=== PATIENT | female | born 1955 | race Caucasian/White ===

== ENCOUNTER → 2021-12-18 | Outpatient (CLI) | payer MEDICARE ==
[~2021-12-18] MED LIST: ACHD5005 PO; ALBU2.5V4 INH; ALPR0.25 PO; AMLO5TAB2 PO; ASCO100083 PO; ASP325TEC PO; ATOR40TA70 PO; BPR150TCR PO; CALCIUM/MAG/ZINC PO; CHOL50003 PO; CYCL10TA9 PO; EPHE1TAB PO; ESTR0.5T3 PO; FISH12002 PO; FLUT1DIS26 IH; FURO40TA PO; GLUC1TAB9 PO; HYDR-34 PO; LORA10TA76 PO; LVF500T PO; MELO-195 PO; MULT-974 PO; POTA-51 PO; SUPER B PLUS PO
--- NOTE | 2021-12-18 12:43 | Diagnostic Imaging Report ---
Indication: Left ankle pain. Time of Exam: 11:29 AM Comparison is made with prior radiograph from 12/11/2021. A transversely oriented fracture through the medial malleolus is again noted. Obliquely oriented fracture distal fibula is noted. Fracture lines remain visible. Alignment is anatomic. Ankle mortise well maintained. Talar dome is smooth. There is moderate soft tissue swelling about the medial and lateral ankle. IMPRESSION: Bimalleolar fracture showing anatomic alignment. Fracture lines remain visible. Dictated by: Dictated on workstation # [id number]
== END ==
LOC: ORTHO 11:15
PROVIDERS: ATTEND Orthopaedic Surgery
DX: S82.842A Displaced bimalleolar fracture of left lower leg, initial encounter for closed fracture (principal); X58.XXXA Exposure to other specified factors, initial encounter
CPT/HCPCS: 73610; G0463; 99203

== ENCOUNTER → 2021-12-25 | Outpatient (CLI) | payer MEDICARE | LOC: CARD 14:30 | PROVIDERS: ATTEND Internal Medicine | DX: I51.7 Cardiomegaly (principal) | CPT/HCPCS: 93306 ==

== ENCOUNTER → 2022-02-12 | Outpatient (CLI) | payer MEDICARE ==
--- NOTE | 2022-02-12 15:26 | Diagnostic Imaging Report ---
INDICATION: Ankle fracture, followup. TIME OF EXAM: 1:58 PM. COMPARISON: Correlation is made with the prior radiograph from 12/18/2021. FINDINGS: Three views of the ankle were obtained. The previously noted medial malleolar fracture is not as well-seen on today's study, consistent with healing. There is some residual lucency through the distal fibula, consistent with residual fracture line. The alignment is anatomic. There has been overall improvement in the soft tissue swelling. The ankle mortise is maintained. The talar dome is smooth. IMPRESSION: Healing ankle fractures, as described. Dictated by: Dictated on workstation # [id number]
== END ==
LOC: ORTHO 13:49
PROVIDERS: ATTEND Orthopaedic Surgery
DX: S82.62XA Displaced fracture of lateral malleolus of left fibula, initial encounter for closed fracture (principal); X58.XXXA Exposure to other specified factors, initial encounter
CPT/HCPCS: 73610

== ENCOUNTER → 2022-02-12 | Outpatient (CLI) | payer MEDICARE | LOC: ORTHO 14:02 | PROVIDERS: ATTEND Orthopaedic Surgery | DX: S82.62XA Displaced fracture of lateral malleolus of left fibula, initial encounter for closed fracture (principal); X58.XXXA Exposure to other specified factors, initial encounter | CPT/HCPCS: 99213 ==

== ENCOUNTER → 2022-03-29 | Outpatient (CLI) | payer MEDICARE ==
--- NOTE | 2022-03-29 13:11 | Diagnostic Imaging Report ---
INDICATION: Follow-up fracture. EXAMINATION: Left ankle 03/29/2022 COMPARISON: 02/12/2022. FINDINGS: 3 views of the ankle. The previously noted distal fibular fracture is stable in alignment. There is a known medial malleolar fracture which is not as well appreciated on today's examination. There is minimal residual soft tissue swelling about the ankle. No new fractures identified. Ankle mortise intact. IMPRESSION: 1. Stable appearing distal fibular fracture with the known medial malleolar fracture not well seen today. Dictated by: Dictated on workstation # [id number]
== END ==
LOC: ORTHO 11:24
PROVIDERS: ATTEND Orthopaedic Surgery
DX: Z47.89 Encounter for other orthopedic aftercare (principal); S82.492D Other fracture of shaft of left fibula, subsequent encounter for closed fracture with routine healing; S82.52XD Displaced fracture of medial malleolus of left tibia, subsequent encounter for closed fracture with routine healing; X58.XXXD Exposure to other specified factors, subsequent encounter
CPT/HCPCS: 73610; G0463; 99213

== ENCOUNTER 2023-02-17 20:15 | Inpatient (IN) | payer MEDICARE, MEDICAID ==
[~2023-02-17] VITALS: Ht 160 cm; Wt 64.7 kg
[2023-02-17] MEDS ORDERED: NS IV 1000 ML 1,000 ML IV STA ×3 (20:27→20:59)
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
[2023-02-17 20:45] LABS: BASOPHILS # (AUTO) 0.1 10^3/uL (0.0-0.1); BASOPHILS % (AUTO) 1 % (0-10); EOSINOPHILS # (AUTO) 0.6 10^3/uL (0.0-0.3); EOSINOPHILS % (AUTO) 6 % (0-10); HEMATOCRIT 37 % (35-52); HEMOGLOBIN 12.1 g/dL (11.5-16.0); LYMPHOCYTES # (AUTO) 2.9 10^3/uL (1.0-4.0); LYMPHOCYTES % (AUTO) 29 % (12-44); MEAN CORPUSCULAR HEMOGLOBIN 31 pg (25-34); MEAN CORPUSCULAR HGB CONC 33 g/dL (32-36); MEAN CORPUSCULAR VOLUME 96 fL (80-99); MEAN PLATELET VOLUME 10.2 fL (9.0-12.2); MONOCYTES # (AUTO) 1.2 10^3/uL (0.0-1.0); MONOCYTES % (AUTO) 11 % (0-12); NEUTROPHILS # (AUTO) 5.5 10^3/uL (1.8-7.8); NEUTROPHILS % (AUTO) 53 % (42-75); PLATELET COUNT 356 10^3/uL (130-400); WHITE BLOOD COUNT 10.3 10^3/uL (4.3-11.0)
[2023-02-17 20:50] LABS: ALBUMIN 4.1 GM/DL (3.2-4.5); CHLORIDE 104 MMOL/L (98-107); POTASSIUM 4.7 MMOL/L (3.6-5.0); SODIUM 138 MMOL/L (135-145)
[2023-02-17 20:51] LABS: CALCIUM 11.2 MG/DL (8.5-10.1)
[2023-02-17 20:53] LABS: GLUCOSE 79 MG/DL (70-105); TOTAL PROTEIN 7.4 GM/DL (6.4-8.2)
[2023-02-17 20:54] LABS: CARBON DIOXIDE 20 MMOL/L (21-32)
[2023-02-17 20:55] LABS: BILIRUBIN,TOTAL 0.5 MG/DL (0.1-1.0)
[2023-02-17 20:56] LABS: ALKALINE PHOSPHATASE 58 U/L (40-136)
[2023-02-17] MEDS ORDERED: NS IV 1000 ML 1,000 ML ONE (20:56)
[2023-02-17 20:57] LABS: CREATININE SERUM 3.77 MG/DL (0.60-1.30); GFR ESTIMATED 13
[2023-02-17 20:58] LABS: BUN/CREATININE RATIO 12
[2023-02-17 20:59] LABS: ALANINE AMINOTRANSFERASE 9 U/L (0-55)
[2023-02-17 21:00] LABS: LIPASE 39 U/L (8-78)
[2023-02-17] MEDS ORDERED: NOREPINEPHRINE 8 MG/250 ML 250 ML IV STA (21:12)
[2023-02-17] MEDS ORDERED: NOREPINEPHRINE 8 MG/250 ML 250 ML IV ONE (21:14)
[2023-02-17 21:34] LABS: INR 1.1 (0.8-1.4); PROTHROMBIN TIME PATIENT 14.2 SEC (12.2-14.7)
[2023-02-17 21:35] LABS: BILIRUBIN,URINE NEGATIVE (NEGATIVE); CLARITY,URINE CLEAR; COLOR,URINE YELLOW; GLUCOSE, URINE (UA) NEGATIVE (NEGATIVE); KETONES,URINE NEGATIVE (NEGATIVE); LEUKOCYTE ESTERASE ,URINE NEGATIVE (NEGATIVE); NITRITE,URINE NEGATIVE (NEGATIVE); PH,URINE 5.5 (5-9); PROTEIN,URINE NEGATIVE (NEGATIVE)
[2023-02-17 21:45] LABS: RBC,URINE RARE /HPF
[2023-02-17 21:46] LABS: AMORPHOUS SEDIMENT,UR RARE AMOR URATES /LPF; BACTERIA,URINE FEW /HPF
[2023-02-17 21:48] LABS: AMPHETAMINE SCREEN, URINE NEGATIVE (NEGATIVE); BARBITURATE SCREEN URINE NEGATIVE (NEGATIVE); BENZODIAZEPINES SCREEN URINE NEGATIVE (NEGATIVE); CANNABINOID SCREEN, URINE NEGATIVE (NEGATIVE); COCAINE SCREEN URINE NEGATIVE (NEGATIVE); METHADONE STAT NEGATIVE (NEGATIVE); OPIATE SCREEN URINE POSITIVE (NEGATIVE); OXYCODONE STAT NEGATIVE (NEGATIVE); PROPOXYPHENE STAT NEGATIVE (NEGATIVE); TRICYCLIC ANTIDEPRESSANTS SCRE NEGATIVE (NEGATIVE)
--- NOTE | 2023-02-17 22:00 | Diagnostic Imaging Report ---
PROCEDURE: CT head, face, and cervical spine without contrast. TECHNIQUE: Multiple contiguous axial images were obtained through the head, neck, and facial bones without the use of intravenous contrast. Sagittal and coronal reformations through the cervical spine and facial bones were also performed. Auto Exposure Controls were utilized during the CT exam to meet ALARA standards for radiation dose reduction. INDICATION: Pain after a fall. FINDINGS: There is prominence of the ventricles and sulci. There is no hydrocephalus. There is no midline shift. There is no mass, hemorrhage or extra-axial fluid collection. The calvarium is intact. The sinuses and mastoid air cells are clear. The nasal bones are intact. The zygomatic arches are intact. The pterygoid plates are intact. The mandibular alignment is normal. There are no displaced facial fractures. There are postsurgical changes in anterior cervical fusion. This is from C3 through C7. There is straightening of the normal cervical lordosis. There is no fracture or traumatic subluxation. The odontoids intact and the lateral masses are well-aligned. The prevertebral soft tissues are within normal limits. IMPRESSION: Age-appropriate atrophy with mild chronic microvascular ischemic disease however no acute intracranial abnormality. No displaced facial fractures. Extensive postsurgical changes in the cervical spine including an anterior cervical disc fusion from C3 through C7. There is however no acute fracture or traumatic subluxation. Dictated by: Dictated on workstation # [id number]
--- NOTE | 2023-02-17 22:06 | Diagnostic Imaging Report ---
INDICATION: Line placement. FINDINGS: There is a right inguinal line placement. The tip appears to be in satisfactory position. It is uncertain if this is venous or arterial. The osseous structures are otherwise unremarkable. IMPRESSION: Interval placement of a right inguinal line placement. Again, this is indeterminate if this is arterial or venous. Recommend clinical correlation Dictated by: Dictated on workstation # [id number]
--- NOTE | 2023-02-17 22:07 | Diagnostic Imaging Report ---
INDICATION: Syncope. COMPARISON is made with prior exam of 09/01/2014. FINDINGS: There is cardiomegaly. There is mild venous congestion. The lungs are otherwise clear. There is no pleural effusion or pneumothorax. Pacemaker overlies the left hemithorax. There are no abandoned leads. IMPRESSION: Cardiomegaly with mild central pulmonary venous congestion. Dictated by: Dictated on workstation # [id number]
[2023-02-17] MEDS ORDERED: CATHETER FLUSH 10 ML SYR IVP PRN (23:30)
[2023-02-18] MEDS ORDERED: NS IV 500 ML 500 ML IV PRN
[2023-02-18] MEDS: NOREPINEPHRINE 8 MG/250 ML 250 ML IV SCH ×2 (00:16→21:57)
[2023-02-18 04:19] LABS: BASOPHILS # (AUTO) 0.1 10^3/uL (0.0-0.1); BASOPHILS % (AUTO) 1 % (0-10); EOSINOPHILS # (AUTO) 0.5 10^3/uL (0.0-0.3); EOSINOPHILS % (AUTO) 4 % (0-10); HEMATOCRIT 37 % (35-52); HEMOGLOBIN 11.9 g/dL (11.5-16.0); LYMPHOCYTES # (AUTO) 2.9 10^3/uL (1.0-4.0); LYMPHOCYTES % (AUTO) 23 % (12-44); MEAN CORPUSCULAR HEMOGLOBIN 31 pg (25-34); MEAN CORPUSCULAR HGB CONC 32 g/dL (32-36); MEAN CORPUSCULAR VOLUME 97 fL (80-99); MEAN PLATELET VOLUME 10.2 fL (9.0-12.2); MONOCYTES # (AUTO) 1.1 10^3/uL (0.0-1.0); MONOCYTES % (AUTO) 9 % (0-12); NEUTROPHILS # (AUTO) 7.7 10^3/uL (1.8-7.8); NEUTROPHILS % (AUTO) 62 % (42-75); PLATELET COUNT 359 10^3/uL (130-400); WHITE BLOOD COUNT 12.3 10^3/uL (4.3-11.0)
[2023-02-18 04:32] LABS: ALBUMIN 3.3 GM/DL (3.2-4.5); POTASSIUM 4.2 MMOL/L (3.6-5.0)
[2023-02-18 04:33] LABS: CALCIUM 9.2 MG/DL (8.5-10.1)
[2023-02-18 04:34] LABS: TOTAL PROTEIN 6.2 GM/DL (6.4-8.2)
[2023-02-18 04:36] LABS: BILIRUBIN,TOTAL 0.4 MG/DL (0.1-1.0)
[2023-02-18 04:38] LABS: CREATININE SERUM 3.01 MG/DL (0.60-1.30); PHOSPHORUS 4.5 MG/DL (2.3-4.7)
[2023-02-18] MEDS: POTASSIUM CL 10MEQ/50ML IVPB 50 ML IV SCH (05:00)
[2023-02-18] MEDS: KCL 20 MEQ TAB (K-DUR) PO SCH (05:00)
[2023-02-18] MEDS: CATHETER FLUSH 10 ML SYR IVP SCH ×3 (05:00→21:55)
[2023-02-18] MEDS: MAGNESIUM 1 GM/100 ML IVPB 100 ML IV SCH (05:00)
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
[2023-02-18] MEDS ORDERED: LEVO25TA5 PO (11:31)
[2023-02-18] MEDS ORDERED: POTA-330 PO (11:31)
[2023-02-18] MEDS ORDERED: AMLO-250 PO (11:31)
[2023-02-18] MEDS ORDERED: ESTR0.5T PO (11:31)
[2023-02-18] MEDS ORDERED: PREG50CA65 PO (11:31)
[2023-02-18] MEDS ORDERED: CHOL-34 PO (11:31)
[2023-02-18] MEDS ORDERED: ASCO100024 PO (11:31)
[2023-02-18] MEDS ORDERED: ALLO100T PO (11:31)
[2023-02-18] MEDS ORDERED: CYCL10TA25 PO (11:31)
[2023-02-18] MEDS ORDERED: BUPR-105 PO (11:31)
[2023-02-18] MEDS ORDERED: ASPI325T32 PO (11:31)
[2023-02-18] MEDS ORDERED: METO50TA7 PO (11:31)
[2023-02-18] MEDS ORDERED: FURO40TA4 PO (11:31)
[2023-02-18] MEDS ORDERED: LISI20TA26 PO (11:31)
[2023-02-18] MEDS ORDERED: MULT-1136 PO (11:31)
[2023-02-18] MEDS ORDERED: ATOR40TA70 PO (11:31)
[2023-02-18] MEDS ORDERED: HYDR-3817 PO ×2 (11:31)
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
--- NOTE | 2023-02-18 16:02 | Diagnostic Imaging Report ---
PROCEDURE: MR imaging of the brain without contrast. TECHNIQUE: Multiplanar, multisequence MR imaging of the brain was performed without contrast. INDICATION: Right-sided weakness. COMPARISON: MRI of the brain on 01/26/2014 FINDINGS: No acute infarct. No acute or chronic hemorrhage. The ventricles are normal in size and configuration without hydrocephalus. The scalp and calvarium are normal. The pituitary and sella are normal. No Chiari malformation. The visualized upper cervical spine is normal. The visualized orbits and globes are normal. The visualized paranasal sinuses are clear. The mastoid air cells are clear. Normal flow voids within the vertebral, basilar, and internal carotid arteries indicating patency. IMPRESSION: No acute infarct, hemorrhage, mass, or hydrocephalus. Dictated by: Dictated on workstation # [id number]
--- NOTE | 2023-02-18 16:19 | Diagnostic Imaging Report ---
PROCEDURE: MR imaging cervical spine without contrast. TECHNIQUE: Multiplanar, multisequence MR imaging of the cervical spine was performed without contrast. INDICATION: Neck pain. Right-sided weakness. COMPARISON: MRI of the cervical spine on 01/26/2014. CT of the cervical spine on 02/17/2023 FINDINGS: Patient motion artifact degrades image quality. The cervical spine is normally aligned. No acute fracture. Moderate multilevel degenerative disc desiccation and disc height loss. Bone marrow edema seen within the dense. Atlantodental arthritic changes. Postsurgical changes from prior ACDF from C3 to C7. The spinal cord is normal in signal intensity. On the limited views of the cranial cavity and brain, the cerebellum and giovana have normal morphology and signal characteristics. No Chiari malformation. No soft tissue abnormality. Normal signal voids are present in the vertebral arteries. C2-3: No significant spinal canal stenosis or neural foraminal narrowing. C3-4: ACDF. Uncovertebral and facet arthropathy. Mild spinal canal narrowing. Mild bilateral neural foraminal narrowing.. C4-5: ACDF. Uncovertebral and facet arthropathy. Mild spinal canal narrowing. Mild bilateral neural foraminal narrowing.. C5-6: Disc osteophyte complex. Uncovertebral and facet arthropathy. Mild to moderate spinal canal stenosis. Severe right and moderate left neural foraminal narrowing. C6-7: Disc osteophyte complex. Uncovertebral and facet arthropathy. Ligamentum flavum thickening. Mass effect on the spinal cord. Severe spinal canal stenosis. Moderate to severe bilateral neural foraminal narrowing.. C7-T1: No significant spinal canal stenosis or neural foraminal narrowing. IMPRESSION: Bone marrow edema within the dens may be seen with degenerative change or fracture. There is significant motion artifact on MRI and comparison CT therefore a nondisplaced dens fracture is difficult to exclude. Recommend clinical correlation and follow-up imaging when patient able to hold still. High-grade spinal canal stenosis at C5-C6 and C6-C7 with mass effect on the spinal cord. Postsurgical changes from prior ACDF from C3 to C7. Dictated by: Dictated on workstation # [id number]
[2023-02-18] MEDS: PREGABALIN 50 MG (LYRICA) CAP PO SCH (20:59)
[2023-02-18] MEDS: CYCLOBENZAPRINE 10 MG (FLEXERIL) TAB PO SCH (21:00)
[2023-02-18] MEDS: HYDROcodone/APAP 7.5 MG/325 MG (LORTAB, LORCET PLUS) TABLET PO SCH (21:00)
[2023-02-18] MEDS ORDERED: RX-CYCLOBENZAPRINE 10 MG (FLEXERIL) TAB PPK#3 PO SCH (21:00)
[2023-02-18] MEDS ORDERED: THIAMINE 100 MG (VITAMIN B-1) TAB PO ONE (21:15)
[2023-02-19] MEDS: HYDROcodone/APAP 7.5 MG/325 MG (LORTAB, LORCET PLUS) TABLET PO PRN ×2 (05:01→16:14)
[2023-02-19 05:24] LABS: BASOPHILS # (AUTO) 0.1 10^3/uL (0.0-0.1); BASOPHILS % (AUTO) 1 % (0-10); EOSINOPHILS # (AUTO) 0.5 10^3/uL (0.0-0.3); EOSINOPHILS % (AUTO) 5 % (0-10); HEMATOCRIT 35 % (35-52); HEMOGLOBIN 11.4 g/dL (11.5-16.0); LYMPHOCYTES # (AUTO) 3.3 10^3/uL (1.0-4.0); LYMPHOCYTES % (AUTO) 30 % (12-44); MEAN CORPUSCULAR HEMOGLOBIN 32 pg (25-34); MEAN CORPUSCULAR HGB CONC 33 g/dL (32-36); MEAN CORPUSCULAR VOLUME 98 fL (80-99); MEAN PLATELET VOLUME 10.2 fL (9.0-12.2); MONOCYTES # (AUTO) 0.9 10^3/uL (0.0-1.0); MONOCYTES % (AUTO) 9 % (0-12); NEUTROPHILS # (AUTO) 6.2 10^3/uL (1.8-7.8); NEUTROPHILS % (AUTO) 56 % (42-75); PLATELET COUNT 320 10^3/uL (130-400)
[2023-02-19 05:43] LABS: ALBUMIN 3.3 GM/DL (3.2-4.5); BILIRUBIN,TOTAL 0.3 MG/DL (0.1-1.0); CALCIUM 9.6 MG/DL (8.5-10.1); CREATININE SERUM 1.97 MG/DL (0.60-1.30); MAGNESIUM 1.6 MG/DL (1.6-2.4); PHOSPHORUS 2.9 MG/DL (2.3-4.7); POTASSIUM 3.8 MMOL/L (3.6-5.0); TOTAL PROTEIN 6.3 GM/DL (6.4-8.2)
[2023-02-19] MEDS: MAGNESIUM 1 GM/100 ML IVPB 100 ML IV SCH ×5 (05:52→09:29)
[2023-02-19] MEDS: CATHETER FLUSH 10 ML SYR IVP SCH ×3 (05:52→21:12)
[2023-02-19] MEDS: POTASSIUM CL 10MEQ/50ML IVPB 50 ML IV SCH (05:52)
[2023-02-19] MEDS: KCL 20 MEQ TAB (K-DUR) PO SCH (05:53)
[2023-02-19] MEDS ORDERED: KCL 20 MEQ TAB (K-DUR) PO ONE (06:00)
[2023-02-19] MEDS: LEVOTHYROXINE 25 MCG (LEVOTHROID) TAB PO SCH (06:36)
[2023-02-19] MEDS: THIAMINE 100 MG (VITAMIN B-1) TAB PO SCH (06:36)
[2023-02-19] MEDS: PREGABALIN 50 MG (LYRICA) CAP PO SCH ×2 (08:16→21:11)
[2023-02-19] MEDS: HYDROcodone/APAP 7.5 MG/325 MG (LORTAB, LORCET PLUS) TABLET PO SCH ×2 (08:16→21:12)
[2023-02-19] MEDS: buPROPion SR 150 MG (WELLBUTRIN SR) TAB PO SCH ×2 (08:16→17:43)
[2023-02-19] MEDS: CYCLOBENZAPRINE 10 MG (FLEXERIL) TAB PO SCH ×2 (08:16→21:11)
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
--- NOTE | 2023-02-19 11:28 | Tele-ICU Progress Note ---
Subjective Date Seen by a Provider: Feb 19, 2023 Time Seen by a Provider: 11:28 Subjective/Events-last exam (Tele-ICU Physician , Progress Note ) Service provided via interactive audio and video telecommunications E-CARE system to a patient admitted to ICU bed in [facility]. Patient is seen today due to persistent need of ICU care Available chart/ vitals / labs / Images reviewed Video assessment done using teleICU camera, rest of exam as per RN Discussed with RN Events overnight : Afebrile hemodynamically stable Respiratory - I/O = Drips: Pressors- LEVO Hospital course: (02/17) 67yF admit with hypotension, JOSEFA s/p fall, CTH neg. line placed levo started A/P S/pfall and brief LOC - improving -CT head and facial bones and MRI did not show any acute process or Fx - ? related to combimation of different class medications - ? no clear sigh of infection - follow clinical progress Shock - etiology not clear - related to combination of different class medications - ? , no clear sigh of infection - follow clinical progress melissa w/up JOSEFA/CKD -improving , follow closely Encephalopathy - improving / meds related -CTH and MRI on admission WNL chronic pain syndrome. cervical disk ds - MRI done - on myltiple pain meds at home s/p fall - ECHO 12/2021 EF 60 % dst dsf , RVSP 35 mmHg Lines : peripg , r femoral line 02/17 , (Central Line Necessity Reviewed) Rosales: OG: Nutrition: Analgesia: Anxiety/ delirium VTE Prophylaxis: hep sq Stress Ulcer Prophylaxis: na Plans in collaboration with bedside consultants and IM MDs. Discussed with RN to reach out if any questions or concerns Case and care daily discussed on multidisciplinary rounds ( RN, PharmD, Route Delivery Service Driver , Respiratory Therapy, group worker ) A total of 31 minutes of critical care time was devoted to this patient today, required to treat and/or prevent further deterioration of critical care condition ( as above ) . I am remotely monitoring this patient from another state. I am unable to do the bedside exam, and history/physical and pertinent information is taken from other notes in the computer and bedside staff. Sepsis Event Evaluation Height, Weight, BMI Height: 5'9.00" Weight: 116lbs. 0.0oz. 52.709645qh; 23.24 BMI Method: Exam Exam Patient acknowledged, consented, and participated in this virtual visit which was conducted using real time audio/video Vital Signs Date Time Temp Pulse Resp B/P (MAP) Pulse Ox O2 Delivery O2 Flow Rate FiO2 02/19/23 10:00 76 32 91/64 (73) 95 Room Air 02/19/23 09:00 78 14 116/73 (87) 99 Room Air 02/19/23 08:00 85 22 101/70 (80) 96 Room Air 02/19/23 08:00 99 Room Air 02/19/23 07:41 89 02/19/23 07:29 36.2 Room Air 02/19/23 07:00 87 69/51 (57) 95 Room Air 02/19/23 06:37 96 66/53 02/19/23 06:14 62 129/71 (90) 98 Room Air 02/19/23 06:06 62 99/62 02/19/23 05:15 81 15 109/92 (98) 96 Room Air 02/19/23 04:59 87 17 106/82 (90) 98 Room Air 02/19/23 04:00 96 Room Air 02/19/23 03:57 36.5 02/19/23 03:55 161 13 103/67 (79) 95 Room Air 02/19/23 03:50 174 18 107/69 (82) 96 Room Air 02/19/23 03:45 125 19 107/70 (82) 96 Room Air 02/19/23 03:05 81 15 101/71 (81) 96 Room Air 02/19/23 02:15 80 11 99/65 (76) 96 Room Air 02/19/23 01:22 80 99/77 02/19/23 01:00 85 14 103/68 (80) 98 Room Air 02/19/23 01:00 101/85 02/19/23 01:00 85 02/19/23 00:45 70 74/52 02/19/23 00:06 81 15 78/54 (62) 95 Room Air 02/19/23 00:00 98 Room Air 02/18/23 23:57 36.6 02/18/23 23:00 130 84/56 (65) 95 Room Air 02/18/23 22:00 82 16 94/69 (77) 96 Room Air 02/18/23 21:57 90/76 02/18/23 21:00 82 91/70 (77) 97 Room Air 02/18/23 20:30 86 82/51 (61) 95 Room Air 02/18/23 19:51 97 Room Air 02/18/23 19:41 36.3 02/18/23 19:30 87 38 95/63 (74) 97 Room Air 02/18/23 19:00 85 02/18/23 18:00 80 108/63 (78) 98 Room Air 02/18/23 17:00 48 101/71 (81) 98 Room Air 02/18/23 16:00 80 115/87 (96) 99 Room Air 02/18/23 16:00 96 Room Air 02/18/23 15:45 79 105/76 (86) 99 Room Air 02/18/23 14:00 80 91/60 (70) 93 Room Air 02/18/23 13:00 78 99/67 (78) 97 Room Air 02/18/23 13:00 102/75 02/18/23 12:18 80 02/18/23 12:00 80 90/62 (71) 94 Room Air 02/18/23 12:00 96 Room Air 02/18/23 11:40 36.8 I & O 02/19/23 07:00 Intake Total 1350 ml Output Total 1600 ml Balance -250 ml Height & Weight Height: 5'9.00" Weight: 116lbs. 0.0oz. 52.499097de; 23.24 BMI Method: General Appearance: No Apparent Distress, Chronically ill HEENT: PERRL/EOMI Respiratory: Lungs Clear, No Respiratory Distress Cardiovascular: Regular Rate, Rhythm, No Murmur Capillary Refill: Less Than 3 Seconds Gastrointestinal: normal bowel sounds, non tender, soft, no organomegaly Extremity: Other Neurologic/Psychiatric: Alert, Oriented x3, Motor Weakness Results Lab Laboratory Tests 02/17/23 20:28 02/18/23 04:10 02/19/23 05:05 Assessment/Plan Assessment/Plan 1 GUERO CHERRY MD Feb 19, 2023 11:28
[2023-02-19] MEDS: LACTATED RINGERS 1,000 ML IV SCH ×2 (12:01→14:29)
--- NOTE | 2023-02-19 12:04 | Physical Therapy Evaluation ---
PT Evaluation-General Medical Diagnosis Admission Date Feb 17, 2023 at 22:44 Medical Diagnosis: FALL/Face Laceration Onset Date: Feb 17, 2023 Therapy Diagnosis Therapy Diagnosis: unsteady gait Height/Weight Height (Feet): 5 Height (Inches): 9.00 Weight (Pounds): 116 Weight (Ounces): 0.0 Precautions Precautions/Isolations: Fall Prevention, Standard Precautions Weight Bear Status Full Weight Bearing Full Weight Bearing Referral Physician: ANTIONETTE Reason for Referral: Evaluation/Treatment Medical History Pertinent Medical History: CAD, Fractures, HTN Additional Medical History hypotension, left ankl fx, pacemaker, chf Current History Ad[facility]. No fracturs, sustained facial lacerations. Reviewed History: Yes Social History Home: Single Level Current Living Status: Friend Entry Into Home: Stairs With Railing PT Steps Into Home: 2 Prior Prior Level of Function SCALE: Activities may be completed with or without assistive devices. 5-Fguiveameg-qtnjgie completes the activity by him/herself with no assistance from a helper. 5-Set-up or Clean-up Assistance-helper sets up or cleans up; patient completes activity. [place] assists only prior to or following the activity. 4-Supervision or Touching Assistance-helper provides verbal cues and/or touching/steadying and/or contact guard assistance as patient completes activity. Assistance may be provided throughout the activity or intermittently. 3-Partial/Moderate Assistance-helper does LESS THAN HALF the effort. Harvey lifts, holds or supports trunk or limbs, but provides less than half the effort. 2-Substantial/Maximal Assistance-helper does MORE THAN HALF the effort. [place] lifts or holds trunk or limbs and provides more than half the effort. 5-Iqdphrzbh-fxmync does ALL the effort. Patient does none of the effort to complete the activity. Or, the assistance of 2 or more helpers is required for the patient to complete the activity. If activity was not attempted, code reason: 7-Patient Refused. 9-Not Applicable-not attempted and the patient did not perform the activity before the current illness, exacerbation or injury. 10-Not Attempted due to Environmental Limitations-(lack of equipment, weather restraints, etc.). 88-Not Attempted due to Medical Conditions or Safety Concerns. Bed Mobility: 6 Transfers (B,C,W/C): 6 Gait: 6 Stairs: 6 PT Evaluation-Current Subjective Reports feeling better today. During ambulation she reports her balance feels n ormal. Objective Patient Orientation: Normal For Age Attachments: Rosales Catheter, IV ROM/Strength ROM Lower Extremities WFL Strength Lower Extremities Gross 4/5 throughout Sensory Vision: Functional Hearing: Functional Transfers Roll Left to Right (QC): 6 Sit to Lying (QC): 6 Lying to Sitting/Side of Bed(Q: 6 Sit to Stand (QC): 6 Chair/Sus-wq-Hpfmq Xfer(QC): 6 Able to move in and out of bed without assist, came to standing without assist, no LOB upon initial stance. Gait Does the Patient Walk?: Yes Mode of Locomotion: Walk Anticipated Mode of Locomotion: Walk Distance: Walked 150ft in foom with SBA, assist for IV and Rosales Gait Assistive Device: None Comments/Gait Description Pt has fair to good dynamic balance. She did demonstrate increased right foot drag with fatigue. Balance Sitting Static: Normal Sitting Dynamic: Normal Standing Static: Fair Standing Dynamic: Fair Assessment/Needs Pt is alerat and oriented. She demonstrated (I) mobility without need for physical assist. Pt is not in need of skilled therapy intervention at this time. Recommend she be up in chair for meals and periodically through the day. Once catheter and IV are removed patient could be up ad bala in her room. Rehab Potential: Good PT Longterm Goals Architectural Draftsman Goals PT Longterm Goals Time Frame: Feb 19, 2023 Roll Left & Right (QC): 6 Sit to Lying (QC): 6 Lying-Sitting on Side/Bed(QC): 6 Sit to Stand (QC): 6 Chair/Wfn-fa-Iewjb Xfer(QC): 6 Walk 150 ft (QC): 4 PT Plan Problem List Problem List: Safety Treatment/Plan Treatment Plan: Discontinue PT, goals met Treatment Duration: Feb 19, 2023 Frequency: 1 time per week Patient and/or Family Agrees t: Yes Safety Risks/Education Patient Education: Gait Training Teaching Recipient: Patient Teaching Methods: Demonstration Time Time In: 1115 Time Out: 1135 DATE: Feb 19, 2023 Total Billed Treatment Time: 20 Total Billed Treatment visit, eval moderate complexity 20 min NAVA QUEZADA PT Feb 19, 2023 12:04
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
[2023-02-19] MEDS: ESTRADIOL 1 MG TAB (ESTRACE) PO SCH (16:12)
[2023-02-19] MEDS ORDERED: NON-FORMULARY MEDICATION 1 EA EA (Estradiol (Estradiol Tablet) 0.5 MG) PO SCH (17:00)
[2023-02-19] MEDS: NOREPINEPHRINE 8 MG/250 ML 250 ML IV SCH (20:53)
[2023-02-20 05:33] LABS: BASOPHILS # (AUTO) 0.1 10^3/uL (0.0-0.1); BASOPHILS % (AUTO) 1 % (0-10); EOSINOPHILS # (AUTO) 0.6 10^3/uL (0.0-0.3); EOSINOPHILS % (AUTO) 5 % (0-10); HEMATOCRIT 33 % (35-52); HEMOGLOBIN 10.5 g/dL (11.5-16.0); LYMPHOCYTES # (AUTO) 3.2 10^3/uL (1.0-4.0); LYMPHOCYTES % (AUTO) 30 % (12-44); MEAN CORPUSCULAR HEMOGLOBIN 31 pg (25-34); MEAN CORPUSCULAR HGB CONC 32 g/dL (32-36); MEAN CORPUSCULAR VOLUME 97 fL (80-99); MEAN PLATELET VOLUME 10.9 fL (9.0-12.2); MONOCYTES # (AUTO) 1.1 10^3/uL (0.0-1.0); MONOCYTES % (AUTO) 10 % (0-12); NEUTROPHILS # (AUTO) 5.8 10^3/uL (1.8-7.8); NEUTROPHILS % (AUTO) 54 % (42-75); PLATELET COUNT 299 10^3/uL (130-400); WHITE BLOOD COUNT 10.8 10^3/uL (4.3-11.0)
[2023-02-20 05:48] LABS: POTASSIUM 4.1 MMOL/L (3.6-5.0)
[2023-02-20 05:49] LABS: CALCIUM 9.4 MG/DL (8.5-10.1)
[2023-02-20 05:50] LABS: TOTAL PROTEIN 5.7 GM/DL (6.4-8.2)
[2023-02-20 05:52] LABS: BILIRUBIN,TOTAL 0.1 MG/DL (0.1-1.0)
[2023-02-20 05:53] LABS: PHOSPHORUS 2.3 MG/DL (2.3-4.7)
[2023-02-20 05:54] LABS: CREATININE SERUM 1.65 MG/DL (0.60-1.30)
[2023-02-20] MEDS: THIAMINE 100 MG (VITAMIN B-1) TAB PO SCH (06:33)
[2023-02-20] MEDS: LEVOTHYROXINE 25 MCG (LEVOTHROID) TAB PO SCH (06:33)
[2023-02-20] MEDS: MAGNESIUM 1 GM/100 ML IVPB 100 ML IV SCH (06:44)
[2023-02-20] MEDS: CATHETER FLUSH 10 ML SYR IVP SCH ×3 (06:44→21:02)
[2023-02-20] MEDS: POTASSIUM CL 10MEQ/50ML IVPB 50 ML IV SCH (06:44)
[2023-02-20] MEDS: KCL 20 MEQ TAB (K-DUR) PO SCH (06:45)
[2023-02-20] MEDS: PREGABALIN 50 MG (LYRICA) CAP PO SCH ×2 (08:21→21:01)
[2023-02-20] MEDS: CYCLOBENZAPRINE 10 MG (FLEXERIL) TAB PO SCH ×2 (08:22→21:01)
[2023-02-20] MEDS: HYDROcodone/APAP 7.5 MG/325 MG (LORTAB, LORCET PLUS) TABLET PO SCH ×3 (08:22→21:01)
[2023-02-20] MEDS: buPROPion SR 150 MG (WELLBUTRIN SR) TAB PO SCH ×2 (08:37→18:24)
--- NOTE | 2023-02-20 09:06 | Tele-ICU Progress Note ---
Subjective Date Seen by a Provider: Feb 20, 2023 Time Seen by a Provider: 09:00 Subjective/Events-last exam (Tele-ICU Physician , Progress Note ) Service provided via interactive audio and video telecommunications E-CARE system to a patient admitted to ICU bed in [facility]. Patient is seen today due to persistent need of ICU care Available chart/ vitals / labs / Images reviewed Video assessment done using teleICU camera, rest of exam as per RN BP still marginal 89/73, UO ok, Off Levohed MRI brain showed no acute process but MRI cervical spine shows severe spinal stenosis from DJD at C 6-7 Sepsis Event Evaluation Height, Weight, BMI Height: 5'9.00" Weight: 116lbs. 0.0oz. 52.205056mk; 23.71 BMI Method: Exam Exam Patient acknowledged, consented, and participated in this virtual visit which was conducted using real time audio/video Vital Signs Date Time Temp Pulse Resp B/P (MAP) Pulse Ox O2 Delivery O2 Flow Rate FiO2 02/20/23 08:01 36.3 Room Air 02/20/23 08:00 110 36 95/67 (76) 97 Room Air 02/20/23 07:18 98 02/20/23 07:00 104 35 104/72 (83) 95 Room Air 02/20/23 06:00 97 14 103/65 (78) 94 Room Air 02/20/23 05:00 90 14 86/64 (71) 94 Room Air 02/20/23 04:00 36.4 93 13 92/67 (75) 94 Room Air 02/20/23 04:00 94 Room Air 02/20/23 03:00 95 16 92/66 (75) 94 Room Air 02/20/23 02:00 89 15 93/59 (70) 94 Room Air 02/20/23 01:00 92 18 94/63 (73) 94 Room Air 02/20/23 01:00 92 02/20/23 00:00 36.6 94 18 100/65 (77) 93 Room Air 02/20/23 00:00 93 Room Air 02/19/23 23:00 84 16 101/70 (80) 97 Room Air 02/19/23 22:00 84 12 84/64 (71) 95 Room Air 02/19/23 21:00 87 12 91/64 (73) 94 Room Air 02/19/23 20:47 95 Room Air 02/19/23 20:00 90 15 101/75 (84) 96 Room Air 02/19/23 19:57 36.7 02/19/23 19:00 Room Air 02/19/23 19:00 81 14 103/63 (76) 97 Room Air 02/19/23 19:00 82 02/19/23 18:00 79 17 86/65 (72) 99 Room Air 02/19/23 17:00 75 12 103/71 (82) 96 Room Air 02/19/23 16:00 79 83/73 (76) 93 Room Air 02/19/23 16:00 99 Room Air 02/19/23 15:51 36.2 Room Air 02/19/23 15:45 100/69 02/19/23 15:00 78 8 96/61 (73) 98 Room Air 02/19/23 14:00 71 15 91/64 (73) 97 Room Air 02/19/23 13:00 80 33 98/65 (76) 97 Room Air 02/19/23 12:50 81 02/19/23 12:00 77 33 106/90 (95) 96 Room Air 02/19/23 12:00 99 Room Air 02/19/23 11:49 36.2 Room Air 02/19/23 11:00 72 92/64 (73) 94 Room Air 02/19/23 10:00 76 32 91/64 (73) 95 Room Air I & O 02/20/23 07:00 Intake Total 4350 ml Output Total 4780 ml Balance -430 ml Height & Weight Height: 5'9.00" Weight: 116lbs. 0.0oz. 52.678577ql; 23.71 BMI Method: General Appearance: No Apparent Distress, Chronically ill HEENT: PERRL/EOMI, Other (c/o neck pain readiates to head, 04/03) Respiratory: Lungs Clear, No Respiratory Distress Cardiovascular: Regular Rate, Rhythm Capillary Refill: Less Than 3 Seconds Gastrointestinal: normal bowel sounds, non tender, soft, no organomegaly Extremity: No Pedal Edema, Other Neurologic/Psychiatric: Alert, Oriented x3 Results Lab Laboratory Tests 02/19/23 05:05 02/20/23 04:50 Assessment/Plan Assessment/Plan BP still marignal JOSEFA look stable and continues to improve, UO adequate For DJD continue pain meds PT has seen, to see neurosurgery next week as OP, if needed would give IV morphine Critical Care: Critically Ill Patient Time spent with patient (mins): 20 DUONG LEWIS MD Feb 20, 2023 09:06
--- NOTE | 2023-02-20 11:28 | Occupational Ther Daily Note ---
OT Current Status-Daily Note Subjective Resting in bed, agreeable to ADLS n recline/chair. BP dropping w/ activity, circulation ther ex EOB prior to stand Pain Numeric Pain Scale: 0-No Pain Mental Status/Objective Patient Orientation: Person, Place, Time, Situation Attachments: IV ADL-Treatment Face/oral/hair grooming, sock change, Education for monitoring s/s of BP episodes during ADLS Therapy Code Descriptions/Definitions Functional Rembrandt Measure: 0=Not Assessed/NA 4=Minimal Assistance 1=Total Assistance 5=Supervision or Setup 2=Maximal Assistance 6=Modified Rembrandt 3=Moderate Assistance 7=Complete IndependenceSCALE: Activities may be completed with or without assistive devices. 0-Kcjbvnjwep-gnvvouq completes the activity by him/herself with no assistance from a helper. 5-Set-up or Clean-up Assistance-helper sets up or cleans up; patient completes activity. [place] assists only prior to or following the activity. 4-Supervision or Touching Assistance-helper provides verbal cues and/or hira jonelle/steadying and/or contact guard assistance as patient completes activity. Assistance may be provided throughout the activity or intermittently. 3-Partial/Moderate Assistance-helper does LESS THAN HALF the effort. [place] lifts, holds or supports trunk or limbs, but provides less than half the effort. 2-Substantial/Maximal Assistance-helper does MORE THAN HALF the effort. [place] lifts or holds trunk or limbs and provides more than half the effort. 4-Pgytujjgp-tbzzpq does ALL the effort. Patient does none of the effort to complete the activity. Or, the assistance of 2 or more helpers is required for the patient to complete the activity. If activity was not attempted, code reason: 7-Patient Refused. 9-Not Applicable-not attempted and the patient did not perform the activity before the current illness, exacerbation or injury. 10-Not Attempted due to Environmental Limitations-(lack of equipment, weather restraints, etc.). 88-Not Attempted due to Medical Conditions or Safety Concerns. Eating (QC): 6 Oral Hygiene (QC): 5 Shower/Bathe Self (QC): 7 Upper Body Dressing (QC): 5 Lower Body Dressing (QC): 6 On/Off Footwear: 6 Toileting Hygiene (QC): 6 Toilet Transfer (QC): 6 Education OT Patient Education: Energy conservation, Exercise program, Modified ADL techniques, Progress toward Goal/Update tx plan, Purpose of tx/functional activities, Reviewed precautions, Rehab process, Safety issues, Transfer techniques Teaching Recipient: Patient Teaching Methods: Demonstration, Discussion Response to Teaching: Reinforcement Needed OT Skilled Nursing Goals Skilled Nursing Goals Oral Hygiene (QC): 6 Toileting Hygiene (QC): 6 Shower/Bathe Self (QC): 6 Upper Body Dressing (QC): 6 Lower Body Dressing (QC): 6 On/Off Footwear (QC): 6 1=Demonstrate adherence to instructed precautions during ADL tasks. 2=Patient will verbalize/demonstrate understanding of assistive devices/modifications for ADL. 3=Patient will improve strength/tolerance for activity to enable patient to perform ADL's. OT Education/Plan Problem List/Assessment Assessment: Decreased Activ Tolerance Discharge Recommendations Plan/Recommendations: Discontinue OT Treatment Plan/Plan of Care Patient would benefit from OT for education, treatment and training to promote independence in ADL's, mobility, safety and/or upper extremity function for ADL's. Plan of Care: ADL Retraining, Functional Mobility, Group Exercise/Act as Ind, UE Funct Exercise/Act Treatment Duration: Feb 22, 2023 Frequency: 3 times per week (3-5 times per week) Estimated Hrs Per Day: .25 hour per day Agreement: Yes Rehab Potential: Good Time Start Time: 09:25 Stop Time: 09:48 DATE: Feb 20, 2023 Total Time Billed (hr/min): 23 Billed Treatment Time ADL 23 ISSAC VELASQUEZ OT Feb 20, 2023 11:28
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
[2023-02-20] MEDS: HYDROcodone/APAP 7.5 MG/325 MG (LORTAB, LORCET PLUS) TABLET PO PRN (15:09)
[2023-02-20] MEDS: ESTRADIOL 1 MG TAB (ESTRACE) PO SCH (18:24)
[2023-02-20] MEDS: NOREPINEPHRINE 8 MG/250 ML 250 ML IV SCH (18:25)
--- NOTE | 2023-02-20 19:02 | Physician Query-Final Dx ---
KRISTY CAAL 02/20/23 1902: Final Diagnosis Give Final Diagnosis Please give Final Diagnosis The medical record reflects the following clinical evidence: Clinical Indicators: BP 76/50 on admission remained low (below 90 sys) even after 4 liter of NS, Cr 3.77 on admission improved to 1.65 after fluids Risk Factor(s)History: Admitted after fall, on Lasix and pain medications Treatment: 4L NS in ER and Norepi, ICU monitoring, Hypovolemic shock, present on admission, resolving Other explanation of clinical findings Unable to determine (no explanation for clinical findings) Please clarify and document your clinical opinion in the progress notes and discharge summary including the definitive and/or presumptive diagnosis, (suspected or probable), related to the above clinical findings. Please include clinical findings supporting your diagnosis. rKisty Caal, MSN, RN Clinical Engine Oiler [phone] [email or web address] YOJANA ADAN MD 02/21/23 1530: Final Diagnosis Give Final Diagnosis 1- hyppovolemic shock KRISTY KERN Feb 20, 2023 19:02 YOJANA ADAN MD Feb 21, 2023 15:30
[2023-02-21] MEDS: HYDROcodone/APAP 7.5 MG/325 MG (LORTAB, LORCET PLUS) TABLET PO PRN ×2 (03:27→09:26)
[2023-02-21 04:58] LABS: BASOPHILS # (AUTO) 0.1 10^3/uL (0.0-0.1); BASOPHILS % (AUTO) 1 % (0-10); EOSINOPHILS # (AUTO) 0.7 10^3/uL (0.0-0.3); EOSINOPHILS % (AUTO) 5 % (0-10); HEMATOCRIT 33 % (35-52); HEMOGLOBIN 10.7 g/dL (11.5-16.0); LYMPHOCYTES # (AUTO) 2.8 10^3/uL (1.0-4.0); LYMPHOCYTES % (AUTO) 23 % (12-44); MEAN CORPUSCULAR HEMOGLOBIN 31 pg (25-34); MEAN CORPUSCULAR HGB CONC 33 g/dL (32-36); MEAN CORPUSCULAR VOLUME 96 fL (80-99); MEAN PLATELET VOLUME 10.3 fL (9.0-12.2); MONOCYTES % (AUTO) 9 % (0-12); NEUTROPHILS # (AUTO) 7.5 10^3/uL (1.8-7.8); NEUTROPHILS % (AUTO) 62 % (42-75); PLATELET COUNT 302 10^3/uL (130-400); WHITE BLOOD COUNT 12.1 10^3/uL (4.3-11.0)
[2023-02-21 05:11] LABS: ALBUMIN 3.1 GM/DL (3.2-4.5); POTASSIUM 4.1 MMOL/L (3.6-5.0)
[2023-02-21 05:15] LABS: BILIRUBIN,TOTAL 0.3 MG/DL (0.1-1.0)
[2023-02-21 05:17] LABS: CREATININE SERUM 1.69 MG/DL (0.60-1.30)
[2023-02-21 05:20] LABS: MAGNESIUM 1.8 MG/DL (1.6-2.4)
[2023-02-21] MEDS: MAGNESIUM 1 GM/100 ML IVPB 100 ML IV SCH ×2 (06:05→06:17)
[2023-02-21] MEDS: LEVOTHYROXINE 25 MCG (LEVOTHROID) TAB PO SCH (06:05)
[2023-02-21] MEDS: THIAMINE 100 MG (VITAMIN B-1) TAB PO SCH (06:05)
[2023-02-21] MEDS: KCL 20 MEQ TAB (K-DUR) PO SCH (06:17)
[2023-02-21] MEDS: POTASSIUM CL 10MEQ/50ML IVPB 50 ML IV SCH (06:17)
[2023-02-21] MEDS: CATHETER FLUSH 10 ML SYR IVP SCH ×3 (06:18→21:08)
[2023-02-21] MEDS: buPROPion SR 150 MG (WELLBUTRIN SR) TAB PO SCH ×2 (09:26→18:23)
[2023-02-21] MEDS: CYCLOBENZAPRINE 10 MG (FLEXERIL) TAB PO SCH ×2 (09:26→21:06)
[2023-02-21] MEDS: PREGABALIN 50 MG (LYRICA) CAP PO SCH ×2 (09:26→21:06)
--- NOTE | 2023-02-21 10:21 | Consultation-Cardiology ---
HPI-Cardiology Cardiology Consultation: Date of Consultation 02/21/23 Date of Admission Attending Physician Ronny Manning DO Admitting Physician Admitting Physician: Joseph Rios MD Attending Physician: Joseph Rios MD Consulting Physician MIKALA COBB MD HPI: Time Seen by a Provider: 10:20 Chief Complaint: Fall Tachycardia Pleasant 67yo F with a PMH of high degree heart block s/p dual-chamber permanent pacemaker, hyperlipidemia, hypertension, chronic neck problems s/p cervical spine surgery who presented to the ER after falling in a parking lot. She felt lightheaded and subsequently had a fall without syncope. Some facial injuries but no fractures. She denies chest pain, shortness of breath or palpitations prior to the fall. Chronic upper extremity weakness, somewhat asymmetric from her C-spine problems. She was found to be mildly hypotensive in the ER and necessitated IVF and ultimately vasopressors to maintain BP. Currently she is o ff pressors. Patient does report chronic neck pain and does take hydrocodone for it. Transthoracic echo 02/21/2023 self reviewed. Mild sinus tachycardia. Normal left ventricular ejection fraction of 55 to 60%. Pulmonary artery pressure estimated at 25 to 30 mmHg. No significant valvular abnormality. Septal bulge with FELIX noted without definite left ventricular outflow tract obstruction. Pacemaker lead noted EKG from this admission self reviewed. Sinus tachycardia. Ventricular paced rhythm CXR 02/17/2023 self reviewed. Harjeet haziness lung cochran. ?overpenetrated film. Dual chamber PPM noted MRI C spine 02/18/2023 IMPRESSION: Bone marrow edema within the dens may be seen with degenerative change or fracture. There is significant motion artifact on MRI and comparison CT therefore a nondisplaced dens fracture is difficult to exclude. Recommend clinical correlation and follow-up imaging when patient able to hold still. High-grade spinal canal stenosis at C5-C6 and C6-C7 with mass effect on the spinal cord. Postsurgical changes from prior ACDF from C3 to C7. Stress test 2020: TID: 1.04 SSS: 4 SDS: 4 EF: 82 1. Patient tolerated Lexiscan well 2. Baseline ventricular paced rhythm 3. Breast attenuation with fixed defect in the apex, no significant ischemia or infarction 4. Normal left ventricular size, hyperactive, EF 82 percent Cardiac cath 2014 (Dr Moura) No evidence of obstructive CAD. LVEF 60% Review of Systems-Cardiology All Other Systems Reviewed Negative Unless Noted: Yes [id number]-[id number] Hx Patient Social History Marrital Status: Smoking Status: Current Everyday Smoker Alcohol Use?: Yes Tobacco type used: Cigarettes Immunizations Up To Date Date of Pneumonia Vaccine: Sep 01, 2012 Date of Influenza Vaccine: Aug 01, 2014 Past Medical History PMH As described under Assessment. Family Medical History Family History: Cardiovascular disease 19 FATHER 19 MOTHER Diabetes mellitus 19 FATHER G8 BROTHER Hypercholesterolemia G8 BROTHER G8 BROTHER Allergies and Home Medications Allergies Coded Allergies: penicillin G (Verified Allergy, Unknown, 12/18/21) Patient Home Medication List Home Medication List Reviewed: Yes Allopurinol (Allopurinol) 100 Mg Tablet, 100 MG PO HS, (Reported) Entered as Reported by: RENETTA KUHN on 02/18/231130 Last Action: Reviewed Amlodipine Besylate (Amlodipine Besylate) 5 Mg Tablet, 5 MG PO DAILY, (Reported) Entered as Reported by: RENETTA KUHN on 02/18/231130 Last Action: Reviewed Ascorbic Acid (Vitamin C) 1,000 Mg Tablet, 1,000 MG PO 1700, (Reported) Entered as Reported by: RENETTA KUHN on 02/18/231130 Last Action: Held Aspirin (Aspirin EC) 325 Mg Tablet.dr, 325 MG PO DAILY, (Reported) Entered as Reported by: RENETTA KUHN on 02/18/231130 Last Action: Held Atorvastatin Calcium (Atorvastatin Calcium) 40 Mg Tablet, 40 MG PO HS, (Reported) Entered as Reported by: RENETTA KUHN on 02/18/231130 Last Action: Continued Bupropion HCl (Bupropion HCl Sr) 150 Mg Tablet.er, 150 MG PO 0800,1700, (Repo rted) Entered as Reported by: RENETTA KUHN on 02/18/231130 Last Action: Continued Cholecalciferol (Vitamin D3) (Vitamin D3) 25 Mcg (1000 Unit) Tablet, 150 MCG PO DAILY, (Reported) Entered as Reported by: RENETTA KUHN on 02/18/231130 Last Action: Held Cyclobenzaprine HCl (Cyclobenzaprine HCl) 10 Mg Tablet, 10 MG PO BID, (Reported) Entered as Reported by: RENETTA KUHN on 02/18/231130 Last Action: Continued Estradiol (Estradiol Tablet) 0.5 Mg Tablet, 0.5 MG PO 1700, (Reported) Entered as Reported by: RENETTA KUHN on 02/18/231130 Last Action: Converted Furosemide (Furosemide) 40 Mg Tablet, 40 MG PO DAILY, (Reported) Entered as Reported by: RENETTA KUHN on 02/18/231130 Last Action: Held Hydrocodone/Acetaminophen (Hydrocodone-Acetamin 7.5-325) 7.5 Mg-325 Mg Tablet, 1 EA PO DAILY, (Reported) Entered as Reported by: RENETTA KUHN on 02/18/231130 Last Action: Continued Hydrocodone/Acetaminophen (Hydrocodone-Acetamin 7.5-325) 7.5 Mg-325 Mg Tablet, 2 EACH PO HS, (Reported) Entered as Reported by: RENETTA KUHN on 02/18/231130 Last Action: Continued Hydrocodone/Acetaminophen (Hydrocodone-Acetamin 7.5-325) 7.5 Mg-325 Mg Tablet, 1 EACH PO DAILY PRN for PAIN-MODERATE (5-7), (Reported) Entered as Reported by: RENETTA KUHN on 02/18/231130 Last Action: Continued Levothyroxine Sodium (Levothyroxine Sodium) 25 Mcg Tablet, 25 MCG PO DAILY, (Reported) Entered as Reported by: RENETTA KUHN on 02/18/231130 Last Action: Continued Lisinopril (Lisinopril) 20 Mg Tablet, 20 MG PO DAILY, (Reported) Entered as Reported by: RENETTA KUHN on 02/18/231130 Last Action: Held Metoprolol Succinate (Metoprolol Succinate) 50 Mg Tab.er.24h, 50 MG PO HS, (Reported) Entered as Reported by: RENETTA KUHN on 02/18/231130 Last Action: Held Multivitamin (Multivitamin) 1 Each Tablet, 1 EACH PO DAILY, (Reported) Entered as Reported by: RENETTA KUHN on 02/18/231130 Last Action: Held Potassium Chloride (Potassium Chloride) 20 Meq Tablet.er, 20 MEQ PO DAILY, (Reported) Entered as Reported by: RENETTA KUHN on 02/18/231130 Last Action: Held Pregabalin (Pregabalin) 50 Mg Capsule, 50 MG PO BID, (Reported) Entered as Reported by: RENETTA KUHN on 02/18/231130 Last Action: Continued Discontinued Medications Albuterol Sulfate (Albuterol Sulfate) 0.83 Mg/Ml Solution, 0.083 MG INH BID PRN for SHORTNESS OF BREATH, (Reported) Discontinued Reason: No Longer Taking Entered as Reported by: KAREN RASHID on 09/01/141131 Last Action: Discontinued Alprazolam (Xanax) 0.25 Mg Tablet, 0.25 MG PO Q8H PRN for ANXIETY, (Reported) Discontinued Reason: No Longer Taking Entered as Reported by: KAREN RASHID on 09/01/141130 Last Action: Discontinued Amlodipine Besylate (Amlodipine Besylate) 5 Mg Tablet, 5 MG PO DAILY, (Reported) Discontinued Reason: No Longer Taking Entered as Reported by: KAREN RASHID on 09/01/141130 Last Action: Discontinued Ascorbic Acid (Vitamin C) 1,000 Mg Tab.chew, 1,000 MG PO DAILY, (Reported) Discontinued Reason: No Longer Taking Entered as Reported by: KAREN RASHID on 09/01/141130 Last Action: Discontinued Aspirin (Aspirin Ec 325 Mg) 325 Mg Tabec, 325 MG PO DAILY, (Reported) Discontinued Reason: No Longer Taking Entered as Reported by: KAREN RASHID on 09/01/141138 Last Action: Discontinued Atorvastatin Calcium (Atorvastatin Calcium) 40 Mg Tablet, 40 MG PO HS, (Reported) Discontinued Reason: No Longer Taking Entered as Reported by: KAREN RASHID on 09/01/141130 Last Action: Discontinued Bupropion Hcl (Wellbutrin Sr) 150 Mg Tablet, 150 MG PO BID, (Reported) Discontinued Reason: No Longer Taking Entered as Reported by: KAREN RASHID on 09/01/141130 Last Action: Discontinued Cholecalciferol (Vitamin D) 5,000 Unit Tablet, 20,000 UNIT PO DAILY, (Reported) Discontinued Reason: No Longer Taking Entered as Reported by: KAREN RASHID on 09/01/141130 Last Action: Discontinued Cyclobenzaprine Hcl (Cyclobenzaprine Hcl) 10 Mg Tablet, 10 MG PO TID PRN for MUSCLE SPASMS, (Reported) Discontinued Reason: No Longer Taking Entered as Reported by: KAREN RASHID on 09/01/141130 Last Action: Discontinued Ephedrine Sulfate/Guaifenesin (Bronkaid Dual Action Caplet) 1 Each Tablet, 1 TAB PO QID PRN for SHORTNESS OF BREATH, (Reported) Discontinued Reason: No Longer Taking Entered as Reported by: KAREN RASHID on 09/01/141132 Last Action: Discontinued Estradiol (Estrace) 0.5 Mg Tablet, 0.5 MG PO 1600, (Reported) Discontinued Reason: No Longer Taking Entered as Reported by: KAREN RASHID on 09/01/141130 Last Action: Discontinued Fish Oil/Borage/Flax/Om3,6,9#1 ([place] 3-6-9 1,200 mg Softgel) 1,200 Mg Capsule, 1,200 MG PO 1600, (Reported) Discontinued Reason: No Longer Taking Entered as Reported by: KAREN RASHID on 09/01/141130 Last Action: Discontinued Fluticasone/Salmeterol (Advair 250 Mcg/50 Mcg 60's) 1 Disk Inhp, 1 PUFF IH BID, (Reported) Discontinued Reason: No Longer Taking Entered as Reported by: KAREN RASHID on 09/01/141130 Last Action: Discontinued Furosemide (Lasix) 40 Mg Tablet, 40 MG PO DAILY, (Reported) Discontinued Reason: No Longer Taking Entered as Reported by: KAREN RASHID on 09/01/141130 Last Action: Discontinued Glucosamine Hcl/Msm (Sm Glucosamine & Msm Tablet) 1 Each Tablet, 1 TAB PO DAILY, (Reported) Discontinued Reason: No Longer Taking Entered as Reported by: KAREN RASHID on 09/01/14 113 Last Action: Discontinued Hydrocodone Bit/Acetaminophen (Lortab 7.5 Mg Tablet) 1 Ea Tablet, 1 TAB PO QID, (Reported) Discontinued Reason: No Longer Taking Entered as Reported by: KAREN RASHID on 09/01/141130 Last Action: Discontinued Hydrocodone/Acetaminophen (Hydrocodone-Acetamin 5-325 mg) 5 Mg-325 Mg Tablet, 1 TAB PO Q4H PRN for PAIN-MODERATE (5-7) Discontinued Reason: No Longer Taking Prescribed by: DIMITRIOS JORDAN on 12/11/21 1647 Last Action: Discontinued Levofloxacin (Levaquin Tablet) 500 Mg Tab, 500 MG PO DAILY@11 Discontinued Reason: No Longer Taking Prescribed by: TRACEY MOURA on 09/02/14 0742 Last Action: Discontinued Loratadine (Claritin) 10 Mg Tablet, 10 MG PO DAILY, (Reported) Discontinued Reason: No Longer Taking Entered as Reported by: KAREN RASHID on 09/01/141130 Last Action: Discontinued Meloxicam (Meloxicam) 15 Mg Tablet, 15 MG PO 1600, (Reported) Discontinued Reason: No Longer Taking Entered as Reported by: KAREN RASHID on 09/01/141130 Last Action: Discontinued Multivitamin (Multi Vitamin Daily) 1 Each Tablet, 1 TAB PO DAILY, (Reported) Discontinued Reason: No Longer Taking Entered as Reported by: KAREN RASHID on 09/01/141130 Last Action: Discontinued Potassium Chloride (Potassium Chloride) 20 Meq Tablet.er, 20 MEQ PO DAILY, (Reported) Discontinued Reason: No Longer Taking Entered as Reported by: KAREN RASHID on 09/01/141130 Last Action: Discontinued [Calcium/Mag/Zinc] , 1 TAB PO DAILY, (Reported) Discontinued Reason: No Longer Taking Entered as Reported by: KAREN RASHID on 09/01/141130 Last Action: Discontinued [Super B Plus] , 1 TAB PO DAILY, (Reported) Discontinued Reason: No Longer Taking Entered as Reported by: KAREN RASHID on 09/01/141130 Last Action: Discontinued Exam Vital Signs Vital Signs Date Time Temp Pulse Resp B/P (MAP) Pulse Ox O2 Delivery O2 Flow Rate FiO2 02/21/23 12:52 111 02/21/23 12:05 36.3 02/21/23 12:00 93/69 (74) 94 Room Air 02/21/23 09:00 16 Physical Exam Awake and alert. Vital signs stable Chest clear to auscultation S1 and S2 are regular. No murmur S3 or S4 No lower extremity edema No jugular venous distention Detailed neurological examination not done Labs Laboratory Tests Test 02/21/23 04:45 Range/Units White Blood Count 12.1 H 4.3-11.0 10^3/uL Red Blood Count 3.41 L 3.80-5.11 10^6/uL Hemoglobin 10.7 L 11.5-16.0 g/dL Hematocrit 33 L 35-52 % Mean Corpuscular Volume 96 80-99 fL Mean Corpuscular Hemoglobin 31 25-34 pg Mean Corpuscular Hemoglobin Concent 33 32-36 g/dL Red Cell Distribution Width 14.7 H 10.0-14.5 % Platelet Count 302 130-400 10^3/uL Mean Platelet Volume 10.3 9.0-12.2 fL Immature Granulocyte % (Auto) 1 % Neutrophils (%) (Auto) 62 42-75 % Lymphocytes (%) (Auto) 23 12-44 % Monocytes (%) (Auto) 9 0-12 % Eosinophils (%) (Auto) 5 0-10 % Basophils (%) (Auto) 1 0-10 % Neutrophils # (Auto) 7.5 1.8-7.8 10^3/uL Lymphocytes # (Auto) 2.8 1.0-4.0 10^3/uL Monocytes # (Auto) 1.0 0.0-1.0 10^3/uL Eosinophils # (Auto) 0.7 H 0.0-0.3 10^3/uL Basophils # (Auto) 0.1 0.0-0.1 10^3/uL Immature Granulocyte # (Auto) 0.1 0.0-0.1 10^3/uL Sodium Level 139 135-145 MMOL/L Potassium Level 4.1 3.6-5.0 MMOL/L Chloride Level 108 H 98-107 MMOL/L Carbon Dioxide Level 21 21-32 MMOL/L Anion Gap 10 5-14 MMOL/L Blood Urea Nitrogen 20 H 7-18 MG/DL Creatinine 1.69 H 0.60-1.30 MG/DL Estimat Glomerular Filtration Rate 33 BUN/Creatinine Ratio 12 Glucose Level 111 H 70-105 MG/DL Calcium Level 10.0 8.5-10.1 MG/DL Corrected Calcium 10.7 H 8.5-10.1 MG/DL Phosphorus Level 3.0 2.3-4.7 MG/DL Magnesium Level 1.8 1.6-2.4 MG/DL Total Bilirubin 0.3 0.1-1.0 MG/DL Aspartate Amino Transf (AST/SGOT) 11 5-34 U/L Alanine Aminotransferase (ALT/SGPT) 6 0-55 U/L Alkaline Phosphatase 51 40-136 U/L Total Protein 6.0 L 6.4-8.2 GM/DL Albumin 3.1 L 3.2-4.5 GM/DL ECG Impression ECG Initial ECG Impression Date: Feb 21, 2023 A/P-Cardiology Assessment/Admission Diagnosis Fall, preceded by dizziness. Hypotension noted earlier during this admission. Volume depletion suspected. 1 L of normal saline bolus ordered. Permanent pacemaker has been interrogated this morning and there is no evidence of any arrhythmia around the time of her fall. Sinus tachycardia secondary to fall, neck pain, and possible volume depletion. Will be monitored CRI/acute on CRI. Follow serum creatinine Hx of PPM placement in 2014. For second degree AV block, Mobitz 2, transient episode of third degree AV block. Adequately functioning permanent pacemaker as per interrogation done this morning. No arrhythmia noted Hypertension. Hypotension noted earlier during this admission. Continue to monitor blood pressure. Resume beta-blockers once blood pressure normalized Hyperlipidemia, maintained on atorvastatin Abnormal MRI of the C-spine. Patient with appointment with neck surgeon next week. Discussed with hospitalist We will continue to follow the patient with you MIKALA COBB MD Feb 21, 2023 10:21
--- NOTE | 2023-02-21 11:28 | Diagnostic Imaging Report ---
HISTORY: Hypotension. COMPARISON: 02/17/2023 TECHNIQUE: Frontal view of the chest FINDINGS: Lung volumes are normal. No consolidation is seen. There is no pleural effusion or pneumothorax. The cardiac silhouette is normal in size. There is aortic atherosclerosis. Left-sided pacemaker leads appear normal. Multiple leads overlie the chest. Fusion hardware is seen at the cervical spine. IMPRESSION: 1. No acute pulmonary abnormality. Dictated by: Dictated on workstation # [id number]
--- NOTE | 2023-02-21 12:45 | Tele-ICU Progress Note ---
Subjective Date Seen by a Provider: Feb 21, 2023 Time Seen by a Provider: 12:45 Subjective/Events-last exam (Tele-ICU Physician , Progress Note ) Service provided via interactive audio and video telecommunications E-CARE system to a patient admitted to ICU bed in [facility]. Patient is seen today due to persistent need of ICU care Available chart/ vitals / labs / Images reviewed Video assessment done using teleICU camera, rest of exam as per RN Discussed with RN Events overnight : Afebrile hemodynamically stable Respiratory - I/O = Drips: Pressors- LEVO OFF Hospital course: (02/17) 67yF admit with hypotension, JOSEFA s/p fall, CTH neg. line placed levo started A/P S/pfall and brief LOC - improving -CT head and facial bones and MRI did not show any acute process or Fx - ? related to combimation of different class medications - ? no clear sigh of infection - follow clinical progress Shock - etiology not clear - related to combination of different class medications - OFF LEVO - monitor JOSEFA/CKD -improving , close to baseline Encephalopathy - improving / meds related -CTH and MRI on admission WNL chronic pain syndrome. cervical disk ds - MRI done - on myltiple pain meds at home s/p fall - ECHO 12/2021 EF 60 % dst dsf , RVSP 35 mmHg Lines : peripg , r femoral line 02/17 , (Central Line Necessity Reviewed) Rosales: OG: Nutrition: Analgesia: Anxiety/ delirium VTE Prophylaxis: hep sq Stress Ulcer Prophylaxis: na Plans in collaboration with bedside consultants and IM MDs. Discussed with RN to reach out if any questions or concerns Case and care daily discussed on multidisciplinary rounds ( RN, PharmD, Clinic Assistant , Respiratory Therapy, dowel pin worker ) A total of 5 minutes of critical care time was devoted to this patient today, required to treat and/or prevent further deterioration of critical care condition ( as above ) . I am remotely monitoring this patient from another state. I am unable to do the bedside exam, and history/physical and pertinent information is taken from other notes in the computer and bedside staff. Sepsis Event Evaluation Height, Weight, BMI Height: 5'9.00" Weight: 116lbs. 0.0oz. 52.222603ie; 23.71 BMI Method: Exam Exam Patient acknowledged, consented, and participated in this virtual visit which was conducted using real time audio/video Vital Signs Date Time Temp Pulse Resp B/P (MAP) Pulse Ox O2 Delivery O2 Flow Rate FiO2 02/21/23 12:05 36.3 02/21/23 12:00 111 93/69 (74) 94 Room Air 02/21/23 11:00 116 90/56 (72) 92 Room Air 02/21/23 09:56 36.5 02/21/23 09:26 36.5 02/21/23 09:00 112 16 88/64 (71) 95 Room Air 02/21/23 08:00 110 88/66 (70) 95 Room Air 02/21/23 08:00 98 Room Air 02/21/23 07:51 36.5 02/21/23 07:00 108 02/21/23 07:00 109 25 85/57 (68) 93 Room Air 02/21/23 06:00 98 13 83/61 (68) 94 Room Air 02/21/23 05:00 104 18 87/62 (70) 96 Room Air 02/21/23 04:00 98 Room Air 02/21/23 04:00 112 17 86/60 (69) 96 Room Air 02/21/23 03:00 113 14 88/60 (69) 95 Room Air 02/21/23 02:00 107 14 90/70 (77) 95 Room Air 02/21/23 01:00 100 17 83/57 (66) 93 Room Air 02/21/23 01:00 100 02/21/23 00:00 98 17 81/51 (61) 95 Room Air 02/21/23 00:00 97 Room Air 02/20/23 23:00 98 11 85/57 (66) 94 Room Air 02/20/23 22:00 103 25 91/65 (74) 95 Room Air 02/20/23 21:00 108 19 90/60 (70) 95 Room Air 02/20/23 20:00 105 27 87/58 (68) 94 Room Air 02/20/23 20:00 96 Room Air 02/20/23 19:00 108 16 100/59 (73) 95 Room Air 02/20/23 19:00 103 02/20/23 18:25 108 93/69 02/20/23 18:00 108 12 93/69 (77) 95 Room Air 02/20/23 17:00 100 12 87/60 (69) 95 Room Air 02/20/23 16:00 103 14 83/63 (70) 95 Room Air 02/20/23 16:00 36.9 Room Air 02/20/23 16:00 97 Room Air 02/20/23 15:39 36.9 02/20/23 15:09 37.1 02/20/23 15:00 107 16 83/58 (66) 94 Room Air 02/20/23 14:00 117 30 98/68 (78) 98 Room Air 02/20/23 13:01 108 02/20/23 13:00 112 20 103/76 (85) 96 Room Air I & O 02/21/23 07:00 Intake Total 3130 ml Output Total 4290 ml Balance -1160 ml Height & Weight Height: 5'9.00" Weight: 116lbs. 0.0oz. 52.164497mh; 23.71 BMI Method: General Appearance: No Apparent Distress, Chronically ill HEENT: PERRL/EOMI, Other (c/o neck pain readiates to head, 04/03) Respiratory: Lungs Clear, No Respiratory Distress Cardiovascular: Regular Rate, Rhythm Capillary Refill: Less Than 3 Seconds Gastrointestinal: normal bowel sounds, non tender, soft, no organomegaly Extremity: No Pedal Edema, Other Neurologic/Psychiatric: Alert, Oriented x3 Results Lab Laboratory Tests 02/20/23 04:50 02/21/23 04:45 Assessment/Plan Assessment/Plan 1 GUERO CHERRY MD Feb 21, 2023 12:45
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
[2023-02-21] MEDS ORDERED: NS IV 1000 ML 1,000 ML IV SCH (14:30)
[2023-02-21] MEDS: ESTRADIOL 1 MG TAB (ESTRACE) PO SCH (18:22)
[2023-02-21] MEDS: NOREPINEPHRINE 8 MG/250 ML 250 ML IV SCH (18:23)
[2023-02-21] MEDS: HYDROcodone/APAP 7.5 MG/325 MG (LORTAB, LORCET PLUS) TABLET PO SCH (21:06)
[2023-02-22 05:22] LABS: WHITE BLOOD COUNT 12.6 10^3/uL (4.3-11.0)
[2023-02-22 05:23] LABS: BASOPHILS # (AUTO) 0.1 10^3/uL (0.0-0.1); BASOPHILS % (AUTO) 1 % (0-10); EOSINOPHILS # (AUTO) 0.6 10^3/uL (0.0-0.3); EOSINOPHILS % (AUTO) 5 % (0-10); HEMATOCRIT 33 % (35-52); HEMOGLOBIN 10.9 g/dL (11.5-16.0); LYMPHOCYTES % (AUTO) 24 % (12-44); MEAN CORPUSCULAR HEMOGLOBIN 32 pg (25-34); MEAN CORPUSCULAR HGB CONC 33 g/dL (32-36); MEAN CORPUSCULAR VOLUME 97 fL (80-99); MEAN PLATELET VOLUME 10.9 fL (9.0-12.2); MONOCYTES # (AUTO) 1.6 10^3/uL (0.0-1.0); MONOCYTES % (AUTO) 12 % (0-12); NEUTROPHILS # (AUTO) 7.3 10^3/uL (1.8-7.8); NEUTROPHILS % (AUTO) 58 % (42-75); PLATELET COUNT 305 10^3/uL (130-400)
[2023-02-22 05:31] LABS: ALBUMIN 3.2 GM/DL (3.2-4.5)
[2023-02-22 05:32] LABS: CALCIUM 9.5 MG/DL (8.5-10.1)
[2023-02-22 05:34] LABS: TOTAL PROTEIN 6.3 GM/DL (6.4-8.2)
[2023-02-22 05:35] LABS: BILIRUBIN,TOTAL 0.3 MG/DL (0.1-1.0)
[2023-02-22 05:37] LABS: CREATININE SERUM 1.55 MG/DL (0.60-1.30); PHOSPHORUS 2.6 MG/DL (2.3-4.7)
[2023-02-22 05:40] LABS: MAGNESIUM 2.1 MG/DL (1.6-2.4)
[2023-02-22] MEDS: POTASSIUM CL 10MEQ/50ML IVPB 50 ML IV SCH (06:08)
[2023-02-22] MEDS: MAGNESIUM 1 GM/100 ML IVPB 100 ML IV SCH (06:08)
[2023-02-22] MEDS: KCL 20 MEQ TAB (K-DUR) PO SCH (06:08)
[2023-02-22] MEDS: LEVOTHYROXINE 25 MCG (LEVOTHROID) TAB PO SCH (06:27)
[2023-02-22] MEDS: THIAMINE 100 MG (VITAMIN B-1) TAB PO SCH (06:27)
[2023-02-22] MEDS: CATHETER FLUSH 10 ML SYR IVP SCH ×3 (06:27→21:13)
[2023-02-22] MEDS: HYDROcodone/APAP 7.5 MG/325 MG (LORTAB, LORCET PLUS) TABLET PO SCH ×2 (08:36→21:13)
[2023-02-22] MEDS: CYCLOBENZAPRINE 10 MG (FLEXERIL) TAB PO SCH ×2 (08:36→21:12)
[2023-02-22] MEDS: PREGABALIN 50 MG (LYRICA) CAP PO SCH ×2 (08:36→21:12)
[2023-02-22] MEDS: buPROPion SR 150 MG (WELLBUTRIN SR) TAB PO SCH ×2 (08:38→16:15)
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
--- NOTE | 2023-02-22 09:58 | Tele-ICU Progress Note ---
Subjective Date Seen by a Provider: Feb 22, 2023 Time Seen by a Provider: 09:57 Subjective/Events-last exam (Tele-ICU Physician , Progress Note ) Service provided via interactive audio and video telecommunications E-CARE system to a patient admitted to ICU bed in [facility]. Patient is seen today due to persistent need of ICU care Available chart/ vitals / labs / Images reviewed Video assessment done using teleICU camera, rest of exam as per RN Discussed with RN Events overnight : Afebrile hemodynamically stable Respiratory - I/O = Drips: Pressors- LEVO OFF Hospital course: (02/17) 67yF admit with hypotension, JOSEFA s/p fall, CTH neg. line placed levo started A/P S/pfall and brief LOC -CT head and facial bones and MRI did not show any acute process or Fx - ? related to combimation of different class medications - ? no clear sigh of infection - follow clinical progress Shock - etiology not clear - related to combination of different class medications ? - OFF LEVO 48 h , but BP still low ( off her home meds for BP - monitor , cards follow JOSEFA/CKD -improving , close to baseline Hypoxia - on 2 l NC today - cxr yesterday clear , neg fluid balance - will try off O2 Encephalopathy - meds related ? RESOLVED -CTH and MRI on admission WNL chronic pain syndrome. cervical disk ds - MRI done - on multiple pain meds at home s/p fall - ECHO 12/2021 EF 60 % dst dsf , RVSP 35 mmHg Lines : peripg , r femoral line 02/17 , (Central Line Necessity Reviewed) Rosales: OG: Nutrition: Analgesia: Anxiety/ delirium VTE Prophylaxis: hep sq Stress Ulcer Prophylaxis: na Plans in collaboration with bedside consultants and IM MDs. Discussed with RN to reach out if any questions or concerns Case and care daily discussed on multidisciplinary rounds ( RN, PharmD, Derrick Engineer , Respiratory Therapy, wet room worker ) A total of 5 minutes of critical care time was devoted to this patient today, required to treat and/or prevent further deterioration of critical care condition ( as above ) . I am remotely monitoring this patient from another state. I am unable to do the bedside exam, and history/physical and pertinent information is taken from other notes in the computer and bedside staff. Sepsis Event Evaluation Height, Weight, BMI Height: 5'9.00" Weight: 116lbs. 0.0oz. 52.820659kp; 23.71 BMI Method: Exam Exam Patient acknowledged, consented, and participated in this virtual visit which was conducted using real time audio/video Vital Signs Date Time Temp Pulse Resp B/P (MAP) Pulse Ox O2 Delivery O2 Flow Rate FiO2 02/22/23 09:00 110 15 85/60 (69) 88 Nasal Cannula 2.00 02/22/23 08:00 112 22 101/26 (35) 96 Nasal Cannula 2.00 02/22/23 07:00 116 02/22/23 07:00 113 20 97/61 (76) 92 Nasal Cannula 2.00 02/22/23 06:52 115 92 Nasal Cannula 2.00 02/22/23 06:00 112 94/61 (72) 94 Room Air 02/22/23 05:00 109 17 92/65 (74) 95 Room Air 02/22/23 04:00 94 Room Air 02/22/23 04:00 111 89/65 (73) 92 Room Air 02/22/23 03:15 67 91/61 (71) 94 Room Air 02/22/23 02:00 112 90/59 (69) 92 Room Air 02/22/23 01:00 116 02/22/23 01:00 116 94/78 (83) 93 Room Air 02/22/23 00:00 117 38 108/86 (93) 87 Room Air 02/22/23 00:00 96 Room Air 02/21/23 23:00 118 21 99/67 (78) 93 Room Air 02/21/23 22:00 121 15 106/69 (81) 94 Room Air 02/21/23 21:00 115 13 106/76 (86) 95 Room Air 02/21/23 20:00 96 Room Air 02/21/23 20:00 112 26 103/72 (82) 96 Room Air 02/21/23 19:36 36.7 02/21/23 19:00 115 02/21/23 19:00 116 32 103/85 (91) 96 Room Air 02/21/23 18:23 135 100/62 02/21/23 18:00 135 100/62 (77) 94 Room Air 02/21/23 17:00 141 16 94/63 (70) Room Air 02/21/23 16:00 108 92/62 (68) Room Air 02/21/23 16:00 98 Room Air 02/21/23 15:52 36.7 02/21/23 15:00 112 19 87/64 (68) Room Air 02/21/23 14:00 110 15 96/69 (73) 95 Room Air 02/21/23 13:00 120 11 90/59 (74) 95 Room Air 02/21/23 12:52 111 02/21/23 12:05 36.3 02/21/23 12:00 98 Room Air 02/21/23 12:00 111 93/69 (74) 94 Room Air 02/21/23 11:00 116 90/56 (72) 92 Room Air I & O 02/22/23 07:00 Intake Total 3220 ml Output Total 5025 ml Balance -1805 ml Height & Weight Height: 5'9.00" Weight: 116lbs. 0.0oz. 52.179541ts; 23.71 BMI Method: General Appearance: No Apparent Distress, Chronically ill HEENT: PERRL/EOMI, Other (c/o neck pain readiates to head, 04/03) Respiratory: Lungs Clear, No Respiratory Distress Cardiovascular: No Murmur, Tachycardia Capillary Refill: Less Than 3 Seconds Gastrointestinal: normal bowel sounds, non tender, soft, no organomegaly Extremity: No Pedal Edema, Other Neurologic/Psychiatric: Alert, Oriented x3 Results Lab Laboratory Tests 02/21/23 04:45 02/22/23 04:35 Assessment/Plan Assessment/Plan 1 GUERO CHERRY MD Feb 22, 2023 09:58
[2023-02-22 11:18] LABS: BILIRUBIN,URINE NEGATIVE (NEGATIVE); CLARITY,URINE CLEAR; COLOR,URINE YELLOW; GLUCOSE, URINE (UA) NEGATIVE (NEGATIVE); KETONES,URINE NEGATIVE (NEGATIVE); LEUKOCYTE ESTERASE ,URINE 2+ (NEGATIVE); NITRITE,URINE NEGATIVE (NEGATIVE); PH,URINE 7.5 (5-9); PROTEIN,URINE NEGATIVE (NEGATIVE)
[2023-02-22 11:31] LABS: BACTERIA,URINE TRACE /HPF; RBC,URINE RARE /HPF; SQUAMOUS EPITHELIAL CELL,UR 0-2 /HPF
[2023-02-22] MEDS: NOREPINEPHRINE 8 MG/250 ML 250 ML IV SCH (13:48)
--- NOTE | 2023-02-22 14:09 | Progress Note - Cardiology ---
Cardiology SOAP Progress Note Subjective: Reports gen malaise and weakness Has had intermittent jerky feeling / spasms No cp or palp or shu syncope No n/v/d Objective: I&O/Vital Signs 02/22/23 02/22/23 02/22/23 02/22/23 03:15 04:00 04:00 05:00 Pulse 67 111 109 Resp 17 B/P (MAP) 91/61 (71) 89/65 (73) 92/65 (74) Pulse Ox 94 92 94 95 O2 Delivery Room Air Room Air Room Air Room Air 02/22/23 02/22/23 02/22/23 02/22/23 06:00 06:52 07:00 07:00 Pulse 112 115 113 116 Resp 20 B/P (MAP) 94/61 (72) 97/61 (76) Pulse Ox 94 92 92 O2 Delivery Room Air Nasal Cannula Nasal Cannula O2 Flow Rate 2.00 2.00 02/22/23 02/22/23 02/22/23 02/22/23 08:00 08:00 09:00 10:00 Pulse 112 110 111 Resp 22 15 19 B/P (MAP) 101/26 (35) 85/60 (69) 77/57 (64) Pulse Ox 97 96 88 95 O2 Delivery Nasal Cannula Nasal Cannula Nasal Cannula Nasal Cannula O2 Flow Rate 2.00 2.00 2.00 2.00 02/22/23 02/22/23 02/22/23 02/22/23 11:00 11:37 12:00 12:00 Temp 36.5 Pulse 114 106 B/P (MAP) 86/63 (68) 102/64 (74) Pulse Ox 97 89 O2 Delivery Nasal Cannula Nasal Cannula Nasal Cannula O2 Flow Rate 2.00 2.00 2.00 02/22/23 02/22/23 02/22/23 12:08 13:00 13:03 Temp 36.6 Pulse 65 106 Resp 23 B/P (MAP) 83/57 (67) Pulse Ox 99 O2 Delivery Nasal Cannula O2 Flow Rate 2.00 02/22/23 00:00 Intake Total 2300 ml Output Total 2200 ml Balance 100 ml Weight (Pounds): 116 Weight (Ounces): 0.0 Weight (Calculated Kilograms): 52.752175 Constitutional: AAO x 3, well-developed, well-nourished Respiratory: No accessory muscle use; chest expansion is symmetric, chest is bi laterally symmetric, other (fair to good, bilateral air entry) Cardiovascular: regular rate-rhythm, S1 and S2, systolic murmur (soft ANA at card base) Gastrointestional: No tender; soft; No guarding, No rebound; audible bowel sounds Extremities: No clubbing, No cyanosis, No significant edema Neurologic/Psychiatric: oriented x 3, other (moves all limbs) Skin: normal color, warm/dry; No rash on exposed areas, No ulcerations on exposed areas Results/Procedures: Labs Laboratory Tests 02/22/23 04:35: White Blood Count 12.6H, Red Blood Count 3.39L, Hemoglobin 10.9L, Hematocrit 33L , Mean Corpuscular Volume 97, Mean Corpuscular Hemoglobin 32, Mean Corpuscular Hemoglobin Concent 33, Red Cell Distribution Width 14.7H, Platelet Count 305, Mean Platelet Volume 10.9, Immature Granulocyte % (Auto) 1, Neutrophils (%) (Auto) 58, Lymphocytes (%) (Auto) 24, Monocytes (%) (Auto) 12, Eosinophils (%) (Auto) 5, Basophils (%) (Auto) 1, Neutrophils # (Auto) 7.3, Lymphocytes # (Auto) 3.0, Monocytes # (Auto) 1.6H, Eosinophils # (Auto) 0.6H, Basophils # (Auto) 0.1, Immature Granulocyte # (Auto) 0.1, Sodium Level 136, Potassium Level 4.0, Chl oride Level 107, Carbon Dioxide Level 20L, Anion Gap 9, Blood Urea Nitrogen 18, Creatinine 1.55H, Estimat Glomerular Filtration Rate 37, BUN/Creatinine Ratio 12, Glucose Level 93, Calcium Level 9.5, Corrected Calcium 10.1, Phosphorus Level 2.6, Magnesium Level 2.1, Total Bilirubin 0.3, Aspartate Amino Transf (AST/SGOT) 10, Alanine Aminotransferase (ALT/SGPT) 6, Alkaline Phosphatase 53, Total Protein 6.3L, Albumin 3.2 02/22/23 11:10: Urine Color YELLOW, Urine Clarity CLEAR, Urine pH 7.5, Urine Specific [place] 1.010L, Urine Protein NEGATIVE, Urine Glucose (UA) NEGATIVE, Urine Ketones NEGATIVE, Urine Nitrite NEGATIVE, Urine Bilirubin NEGATIVE, Urine Urobilinogen 0.2, Urine Leukocyte Esterase 2+H, Urine RBC (Auto) 1+H, Urine RBC RARE, Urine WBC 5-10H, Urine Squamous Epithelial Cells 0-2, Urine Crystals NONE, Urine Bacteria TRACE, Urine Casts NONE, Urine Mucus NEGATIVE, Urine Culture Indicated YES Microbiology 02/17/23 MRSA Screen - Final, Complete MRSA not isolated Laboratory Tests 02/21/23 04:45 02/22/23 04:35 A/P: Assessment: Fall, preceded by dizziness. Hypotension at admission. Improved but not fully resolved with hydration - Echo on 02-21-23 (Dr Almaraz): LVEF 55-60%, septal bulge with FELIX but w/o LVOT a cceleration, normal systolic and diastolic function, no wall motion abnormality, device lead in right ventricle, trivial TR, no pericard eff, PASP 35-30 mmHg S/p perm pacemaker for advanced heart block in 2014 - pacemaker interrogation by Dr Almaraz on 02-22-32: normal function, no significant arrhythmia Clinical evidence of diaphragmatic stimulation by the pacemaker - corrected today by changing ventricular lead pulse width from 0.4 to 0.9 and voltage from 2 to 1.5. Lead impedances are normal and rhythm is sinus tach ( a sense, v pace) Renal insuff, probably partly acute, improved with hydration Hyperlipidemia - treated as outpt with atorvastatin Abnormal MRI of the C-spine - Discussed with Dr Blanco who is managing and who had discussed this with Orthopedics who have advised outpt f/u Plan: I interviewed and examined the patient and have discussed the case with Dr Almaraz, Dr Blanco. I also called Dr Valentin of EP svce at and discussed the issue of diaphragmatic stimulation from the ventricular lead and sought his opinion. He agreed with the measures taken and will see patient as an outpatient. NIRALI TORRES MD [facility] CCDS Feb 22, 2023 14:09
[2023-02-22] MEDS: NS IV 1000 ML 1,000 ML IV SCH ×2 (15:34→22:44)
[2023-02-22] MEDS: ESTRADIOL 1 MG TAB (ESTRACE) PO SCH (16:15)
[2023-02-23 05:05] LABS: BASOPHILS # (AUTO) 0.1 10^3/uL (0.0-0.1); BASOPHILS % (AUTO) 1 % (0-10); EOSINOPHILS # (AUTO) 0.7 10^3/uL (0.0-0.3); EOSINOPHILS % (AUTO) 6 % (0-10); HEMATOCRIT 29 % (35-52); HEMOGLOBIN 9.5 g/dL (11.5-16.0); LYMPHOCYTES # (AUTO) 2.9 10^3/uL (1.0-4.0); LYMPHOCYTES % (AUTO) 26 % (12-44); MEAN CORPUSCULAR HEMOGLOBIN 32 pg (25-34); MEAN CORPUSCULAR HGB CONC 33 g/dL (32-36); MEAN CORPUSCULAR VOLUME 97 fL (80-99); MEAN PLATELET VOLUME 10.5 fL (9.0-12.2); MONOCYTES # (AUTO) 1.3 10^3/uL (0.0-1.0); MONOCYTES % (AUTO) 12 % (0-12); NEUTROPHILS # (AUTO) 6.4 10^3/uL (1.8-7.8); NEUTROPHILS % (AUTO) 56 % (42-75); PLATELET COUNT 289 10^3/uL (130-400); WHITE BLOOD COUNT 11.4 10^3/uL (4.3-11.0)
[2023-02-23 05:16] LABS: CALCIUM 9.2 MG/DL (8.5-10.1)
[2023-02-23 05:18] LABS: TOTAL PROTEIN 5.9 GM/DL (6.4-8.2)
[2023-02-23 05:19] LABS: BILIRUBIN,TOTAL 0.3 MG/DL (0.1-1.0)
[2023-02-23 05:21] LABS: CREATININE SERUM 1.4 MG/DL (0.60-1.30)
[2023-02-23] MEDS: NS IV 1000 ML 1,000 ML IV SCH ×4 (05:52→19:29)
[2023-02-23] MEDS: KCL 20 MEQ TAB (K-DUR) PO SCH (06:09)
[2023-02-23] MEDS: POTASSIUM CL 10MEQ/50ML IVPB 50 ML IV SCH (06:09)
[2023-02-23] MEDS: MAGNESIUM 1 GM/100 ML IVPB 100 ML IV SCH (06:09)
[2023-02-23] MEDS: THIAMINE 100 MG (VITAMIN B-1) TAB PO SCH (06:35)
[2023-02-23] MEDS: LEVOTHYROXINE 25 MCG (LEVOTHROID) TAB PO SCH (06:35)
[2023-02-23] MEDS: CATHETER FLUSH 10 ML SYR IVP SCH ×3 (06:35→21:25)
[2023-02-23] MEDS: HYDROcodone/APAP 7.5 MG/325 MG (LORTAB, LORCET PLUS) TABLET PO SCH ×2 (08:23→21:25)
[2023-02-23] MEDS: CYCLOBENZAPRINE 10 MG (FLEXERIL) TAB PO SCH ×2 (08:23→21:25)
[2023-02-23] MEDS: PREGABALIN 50 MG (LYRICA) CAP PO SCH ×2 (08:23→21:25)
[2023-02-23] MEDS: buPROPion SR 150 MG (WELLBUTRIN SR) TAB PO SCH ×2 (08:23→17:28)
--- NOTE | 2023-02-23 12:28 | Tele-ICU Progress Note ---
Subjective Date Seen by a Provider: Feb 23, 2023 Time Seen by a Provider: 12:28 Subjective/Events-last exam (Tele-ICU Physician , Progress Note ) Service provided via interactive audio and video telecommunications E-CARE system to a patient admitted to ICU bed in [facility]. Patient is seen today due to persistent need of ICU care Available chart/ vitals / labs / Images reviewed Video assessment done using teleICU camera, rest of exam as per RN Discussed with RN Events overnight : Afebrile hemodynamically stable Respiratory - ra I/O = even Drips: Pressors- LEVO OFF Hospital course: (02/17) 67yF admit with hypotension, JOSEFA s/p fall, CTH neg. line placed levo started A/P S/pfall and brief LOC -CT head and facial bones and MRI did not show any acute process or Fx - ? related to combimation of different class medications - ? no clear sigh of infection - follow clinical progress Shock - etiology not clear - related to combination of different class medications ? - OFF LEVO 48 h , but BP still low ( off her home meds for BP - monitor , cards follow JOSEFA/CKD -improving , close to baseline Hypoxia - on 2 l NC today - cxr yesterday clear , neg fluid balance - will try off O2 Encephalopathy - meds related ? RESOLVED -CTH and MRI on admission WNL chronic pain syndrome. cervical disk ds - MRI done - on multiple pain meds at home s/p fall - ECHO 12/2021 EF 60 % dst dsf , RVSP 35 mmHg Lines : peripg , r femoral line 02/17 , (Central Line Necessity Reviewed) Rosales: removed , void OG: Nutrition: po Analgesia: Anxiety/ delirium VTE Prophylaxis: hep sq Stress Ulcer Prophylaxis: na Plans in collaboration with bedside consultants and IM MDs. Discussed with RN to reach out if any questions or concerns Case and care daily discussed on multidisciplinary rounds ( RN, PharmD, Licensed Sales Producer , Respiratory Therapy, day worker ) A total of 5 minutes of critical care time was devoted to this patient today, required to treat and/or prevent further deterioration of critical care condition ( as above ) . I am remotely monitoring this patient from another state. I am unable to do the bedside exam, and history/physical and pertinent information is taken from other notes in the computer and bedside staff. Sepsis Event Evaluation Height, Weight, BMI Height: 5'9.00" Weight: 116lbs. 0.0oz. 52.431630jj; 23.71 BMI Method: Focused Exam Lactate Level 02/23/23 04:44: Lactic Acid Level 0.67 Exam Exam Patient acknowledged, consented, and participated in this virtual visit which was conducted using real time audio/video Vital Signs Date Time Temp Pulse Resp B/P (MAP) Pulse Ox O2 Delivery O2 Flow Rate FiO2 02/23/23 12:00 114 36 113/80 (89) 98 Room Air 02/23/23 11:00 93 21 74/69 (72) 97 Room Air 02/23/23 10:00 100 24 80/61 (67) 93 Room Air 02/23/23 09:00 98 17 90/61 (68) 95 Room Air 02/23/23 08:00 99 96 Room Air 02/23/23 08:00 36.0 105 20 93/60 (71) 96 Room Air 02/23/23 08:00 96 Room Air 02/23/23 07:00 97 02/23/23 07:00 96 18 92/66 (73) 94 Room Air 02/23/23 06:00 98 15 90/65 (73) 92 Room Air 02/23/23 05:00 99 24 84/60 (68) 92 Room Air 02/23/23 04:00 97 Room Air 02/23/23 04:00 95 26 90/58 (69) 93 Room Air 02/23/23 03:00 98 31 90/61 (71) 95 Room Air 02/23/23 02:00 113 19 96/63 (74) 93 Room Air 02/23/23 01:48 97 02/23/23 01:00 103 20 99/69 (79) 95 Room Air 02/23/23 00:00 102 26 92/67 (75) 94 Room Air 02/23/23 00:00 95 Room Air 02/22/23 23:00 103 24 94/65 (75) 94 Room Air 02/22/23 22:00 105 24 93/66 (75) 95 Room Air 02/22/23 21:00 108 20 91/66 (74) 95 Room Air 02/22/23 20:00 96 Room Air 02/22/23 20:00 112 20 101/68 (79) 95 Room Air 02/22/23 19:00 112 20 120/76 (91) 96 Room Air 02/22/23 18:59 114 02/22/23 18:00 105 16 96/64 (72) 93 Room Air 02/22/23 17:00 103 15 93/67 (73) 93 Room Air 02/22/23 16:17 97 Room Air 02/22/23 16:14 37.1 Room Air 02/22/23 16:00 104 85/69 (78) 97 Nasal Cannula 2.00 02/22/23 15:00 108 27 103/76 (80) Nasal Cannula 2.00 02/22/23 14:00 112 32 97/73 (81) 99 Nasal Cannula 2.00 02/22/23 13:03 106 02/22/23 13:00 102 23 83/57 (67) 99 Nasal Cannula 2.00 I & O 02/23/23 07:00 Intake Total 5580 ml Output Total 1300 ml Balance 4280 ml Height & Weight Height: 5'9.00" Weight: 116lbs. 0.0oz. 52.322990le; 23.71 BMI Method: General Appearance: No Apparent Distress, Chronically ill HEENT: PERRL/EOMI, Other (c/o neck pain readiates to head, 04/03) Respiratory: Lungs Clear, No Respiratory Distress Cardiovascular: No Murmur, Tachycardia Capillary Refill: Less Than 3 Seconds Gastrointestinal: normal bowel sounds, non tender, soft, no organomegaly Extremity: No Pedal Edema, Other Neurologic/Psychiatric: Alert, Oriented x3 Results Lab Laboratory Tests 02/22/23 04:35 02/23/23 04:44 Assessment/Plan Assessment/Plan 1 GUERO CHERRY MD Feb 23, 2023 12:28
--- NOTE | 2023-02-23 12:29 | Progress Note - Cardiology ---
Cardiology SOAP Progress Note Subjective: Notes modest improvement of symptoms Intermittent feeling of malaise and weakness No cp or palp or syncope No focal weakness No swelling No n/v/d "Spasm" have resolved after pacemaker lead output adjustment on 02-22-23 Objective: I&O/Vital Signs 02/23/23 02/23/23 02/23/23 02/23/23 01:00 01:48 02:00 03:00 Pulse 103 97 113 98 Resp 20 19 31 B/P (MAP) 99/69 (79) 96/63 (74) 90/61 (71) Pulse Ox 95 93 95 O2 Delivery Room Air Room Air Room Air 02/23/23 02/23/23 02/23/23 02/23/23 04:00 04:00 05:00 06:00 Pulse 95 99 98 Resp 26 24 15 B/P (MAP) 90/58 (69) 84/60 (68) 90/65 (73) Pulse Ox 93 97 92 92 O2 Delivery Room Air Room Air Room Air Room Air 02/23/23 02/23/23 02/23/23 02/23/23 07:00 07:00 08:00 08:00 Temp 36.0 Pulse 96 97 105 Resp 18 20 B/P (MAP) 92/66 (73) 93/60 (71) Pulse Ox 94 96 96 O2 Delivery Room Air Room Air Room Air 02/23/23 02/23/23 02/23/23 02/23/23 08:00 09:00 10:00 11:00 Pulse 99 98 100 93 Resp 17 24 21 B/P (MAP) 90/61 (68) 80/61 (67) 74/69 (72) Pulse Ox 96 95 93 97 O2 Delivery Room Air Room Air Room Air Room Air 02/23/23 12:00 Pulse 114 Resp 36 B/P (MAP) 113/80 (89) Pulse Ox 98 O2 Delivery Room Air 02/23/23 00:00 Intake Total 3050 ml Output Total 600 ml Balance 2450 ml Weight (Pounds): 116 Weight (Ounces): 0.0 Weight (Calculated Kilograms): 52.774523 Constitutional: AAO x 3, well-developed, well-nourished Respiratory: No accessory muscle use; chest expansion is symmetric, chest is bilaterally symmetric, other (fair to good, bilateral air entry) Cardiovascular: regular rate-rhythm, S1 and S2, systolic murmur (soft ANA at card base) Gastrointestional: No tender; soft; No guarding, No rebound; audible bowel soun ds Extremities: No clubbing, No cyanosis, No significant edema Neurologic/Psychiatric: oriented x 3, other (moves all limbs) Skin: normal color, warm/dry; No rash on exposed areas, No ulcerations on exposed areas Results/Procedures: Labs Laboratory Tests 02/23/23 04:44: White Blood Count 11.4H, Red Blood Count 3.00L, Hemoglobin 9.5L, Hematocrit 29L, Mean Corpuscular Volume 97, Mean Corpuscular Hemoglobin 32, Mean Corpuscular Hemoglobin Concent 33, Red Cell Distribution Width 14.7H, Platelet Count 289, Mean Platelet Volume 10.5, Immature Granulocyte % (Auto) 1, Neutrophils (%) (Auto) 56, Lymphocytes (%) (Auto) 26, Monocytes (%) (Auto) 12, Eosinophils (%) (Auto) 6, Basophils (%) (Auto) 1, Neutrophils # (Auto) 6.4, Lymphocytes # (Auto) 2.9, Monocytes # (Auto) 1.3H, Eosinophils # (Auto) 0.7H, Basophils # (Auto) 0.1, Immature Granulocyte # (Auto) 0.1, Sodium Level 137, Potassium Level 4.0, Chloride Level 111H, Carbon Dioxide Level 18L, Anion Gap 8, Blood Urea Nitrogen 22H, Creatinine 1.40H, Estimat Glomerular Filtration Rate 42, BUN/Creatinine Ratio 16, Glucose Level 84, Lactic Acid Level 0.67, Calcium Level 9.2, Corrected Calcium 10.0, Phosphorus Level 3.0, Magnesium Level 2.0, Total Bilirubin 0.3, Aspartate Amino Transf (AST/SGOT) 12, Alanine Aminotransferase (ALT/SGPT) 8, A lkaline Phosphatase 50, Total Protein 5.9L, Albumin 3.0L Microbiology 02/22/23 Urine Culture - Preliminary, Resulted Probable Coag Negative Staph 02/17/23 MRSA Screen - Final, Complete MRSA not isolated Laboratory Tests 02/22/23 04:35 02/23/23 04:44 A/P: Assessment: Fall, preceded by dizziness. Hypotension at admission. Improved but not fully resolved with hydration - Echo on 02-21-23 (Dr Almaraz): LVEF 55-60%, septal bulge with FELIX but w/o LVOT acceleration, normal systolic and diastolic function, no wall motion abnormality, device lead in right ventricle, trivial TR, no pericard eff, PASP 35-30 mmHg - Limited echo on 02-23-23: LVEF approx 60%, no RWMA seen, minimal amount of pericardial fluid (not significantly different from the study of 02-21-23) w/o evidence of hemodynamic compromise S/p perm pacemaker for advanced heart block in 2014 - pacemaker interrogation by Dr Almaraz on 02-22-32: normal function, no significant arrhythmia Clinical evidence of diaphragmatic stimulation by the pacemaker - corrected today by changing ventricular lead pulse width from 0.4 to 0.9 and voltage from 2 to 1.5. Lead impedances are normal and rhythm is sinus tach ( a sense, v pace) Renal insuff, probably partly acute, improved with hydration Hyperlipidemia - treated as outpt with atorvastatin Abnormal MRI of the C-spine - Discussed with Dr Blanco who is managing and who had discussed this with Orthopedics who have advised outpt f/u Plan: * Complex management * Assessment and recommendations are as noted above * I discussed her case with Dr Blanco this am NIRALI TORRES MD FACP [facility] CCDS Feb 23, 2023 12:29
[2023-02-23] MEDS: NOREPINEPHRINE 8 MG/250 ML 250 ML IV SCH (13:12)
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
[2023-02-23] MEDS: ESTRADIOL 1 MG TAB (ESTRACE) PO SCH (17:28)
[2023-02-24] MEDS: NS IV 1000 ML 1,000 ML IV SCH ×4 (02:22→23:16)
[2023-02-24 04:26] LABS: BASOPHILS # (AUTO) 0.1 10^3/uL (0.0-0.1); BASOPHILS % (AUTO) 1 % (0-10); EOSINOPHILS # (AUTO) 0.5 10^3/uL (0.0-0.3); EOSINOPHILS % (AUTO) 5 % (0-10); HEMATOCRIT 29 % (35-52); HEMOGLOBIN 9.2 g/dL (11.5-16.0); LYMPHOCYTES # (AUTO) 2.5 10^3/uL (1.0-4.0); LYMPHOCYTES % (AUTO) 25 % (12-44); MEAN CORPUSCULAR HEMOGLOBIN 31 pg (25-34); MEAN CORPUSCULAR HGB CONC 32 g/dL (32-36); MEAN CORPUSCULAR VOLUME 97 fL (80-99); MEAN PLATELET VOLUME 10.2 fL (9.0-12.2); MONOCYTES # (AUTO) 1.1 10^3/uL (0.0-1.0); MONOCYTES % (AUTO) 11 % (0-12); NEUTROPHILS # (AUTO) 5.8 10^3/uL (1.8-7.8); NEUTROPHILS % (AUTO) 58 % (42-75); PLATELET COUNT 315 10^3/uL (130-400); WHITE BLOOD COUNT 10.1 10^3/uL (4.3-11.0)
[2023-02-24 04:39] LABS: ALBUMIN 2.9 GM/DL (3.2-4.5)
[2023-02-24 04:40] LABS: CALCIUM 8.9 MG/DL (8.5-10.1)
[2023-02-24 04:42] LABS: TOTAL PROTEIN 5.8 GM/DL (6.4-8.2)
[2023-02-24 04:43] LABS: BILIRUBIN,TOTAL 0.2 MG/DL (0.1-1.0)
[2023-02-24 04:45] LABS: CREATININE SERUM 1.39 MG/DL (0.60-1.30); PHOSPHORUS 2.2 MG/DL (2.3-4.7)
[2023-02-24 04:48] LABS: MAGNESIUM 1.9 MG/DL (1.6-2.4)
[2023-02-24] MEDS: POTASSIUM CL 10MEQ/50ML IVPB 50 ML IV SCH (04:50)
[2023-02-24] MEDS: MAGNESIUM 1 GM/100 ML IVPB 100 ML IV SCH ×3 (04:51→06:10)
[2023-02-24] MEDS: KCL 20 MEQ TAB (K-DUR) PO SCH (04:51)
[2023-02-24] MEDS: CATHETER FLUSH 10 ML SYR IVP SCH ×3 (04:59→21:59)
[2023-02-24] MEDS: LEVOTHYROXINE 25 MCG (LEVOTHROID) TAB PO SCH (06:10)
[2023-02-24] MEDS: THIAMINE 100 MG (VITAMIN B-1) TAB PO SCH (06:10)
--- NOTE | 2023-02-24 08:40 | Progress Note - Cardiology ---
Cardiology SOAP Progress Note Subjective: Sitting up in bed eating morning meal C/O intermittent lightheadedness C/O heaviness in her chest which is constant C/O SOB No c/o palpitations Objective: I&O/Vital Signs Weight (Pounds): 116 Weight (Ounces): 0.0 Weight (Calculated Kilograms): 52.384841 Constitutional: AAO x 3, well-developed, well-nourished Respiratory: No accessory muscle use; chest expansion is symmetric, chest is bilaterally symmetric, other (fair to good, bilateral air entry) Cardiovascular: regular rate-rhythm, S1 and S2, systolic murmur (soft ANA at card base) Gastrointestional: No tender; soft; No guarding, No rebound; audible bowel sounds Extremities: No clubbing, No cyanosis, No significant edema Neurologic/Psychiatric: oriented x 3, other (moves all limbs) Skin: normal color, warm/dry; No rash on exposed areas, No ulcerations on expos ed areas Results/Procedures: Labs Microbiology 02/22/23 Urine Culture - Final, Complete Probable Coag Negative Staph See Comments 02/17/23 MRSA Screen - Final, Complete MRSA not isolated A/P: Assessment: Fall, preceded by dizziness. Hypotension at admission. Improved but not fully resolved with hydration - Echo on 02-21-23 (Dr Almaraz): LVEF 55-60%, septal bulge with FELIX but w/o LVOT acceleration, normal systolic and diastolic function, no wall motion abnormality, device lead in right ventricle, trivial TR, no pericard eff, PASP 35-30 mmHg - Limited echo on 02-23-23: LVEF approx 60%, no RWMA seen, minimal amount of pericardial fluid (not significantly different from the study of 02-21-23) w/o evidence of hemodynamic compromise S/p perm pacemaker for advanced heart block in 2015 - pacemaker interrogation by Dr Almaraz on 02-21-23: normal function, no significant arrhythmia Clinical evidence of diaphragmatic stimulation by the pacemaker - corrected today by changing ventricular lead pulse width from 0.4 to 0.9 and voltage from 2 to 1.5. Lead impedances are normal and rhythm is sinus tach ( a sense, v pace) Renal insuff, probably partly acute, improved with hydration Hyperlipidemia - treated as out pt with atorvastatin Abnormal MRI of the C-spine - Discussed with Dr Blanco who is managing and who had discussed this with Orthopedics who have advised outpt f/u Plan: * Complex management * BP remains low at times, although she reports to me that her BP is chronically low at baseline, but will sometimes be high (labile HTN) * Ambulate in halls today * Orthostatic BP's today * Continue to monitor lab * Replace electrolytes as indicated * Thigh high compression socks on in the morning and off at hs NAUN MANDEL Feb 24, 2023 08:40
[2023-02-24] MEDS: HYDROcodone/APAP 7.5 MG/325 MG (LORTAB, LORCET PLUS) TABLET PO SCH ×2 (08:54→21:58)
[2023-02-24] MEDS: PREGABALIN 50 MG (LYRICA) CAP PO SCH ×2 (08:55→21:58)
[2023-02-24] MEDS: CYCLOBENZAPRINE 10 MG (FLEXERIL) TAB PO SCH ×2 (08:55→21:58)
[2023-02-24] MEDS: buPROPion SR 150 MG (WELLBUTRIN SR) TAB PO SCH ×2 (08:55→17:37)
--- NOTE | 2023-02-24 09:55 | Progress Note - Cardiology ---
Cardiology SOAP Progress Note Subjective: No cp or palp or syncope or shortness of breath Gen malaise and weakness present No focal weakness No n/v/d She reports chronically low bp Objective: I&O/Vital Signs 02/23/23 02/23/23 02/24/23 02/24/23 22:00 23:30 00:00 00:00 Pulse 108 106 102 Resp 15 14 18 B/P (MAP) 97/73 (82) 105/68 (88) 98/69 (80) Pulse Ox 97 94 93 98 O2 Delivery Room Air Room Air Room Air Room Air 02/24/23 02/24/23 02/24/23 02/24/23 01:00 01:00 02:00 03:00 Pulse 100 100 96 96 Resp 16 19 14 B/P (MAP) 95/69 (78) 91/68 (76) 94/68 (77) Pulse Ox 93 94 94 O2 Delivery Room Air Room Air Room Air 02/24/23 02/24/23 02/24/23 02/24/23 03:35 04:00 04:08 05:00 Temp 36.3 Pulse 93 96 Resp 17 B/P (MAP) 95/64 (74) 103/72 (82) Pulse Ox 93 94 95 O2 Delivery Room Air Room Air Room Air 02/24/23 02/24/23 02/24/23 02/24/23 06:00 06:30 07:00 07:37 Pulse 97 70 94 98 Resp 18 B/P (MAP) 92/69 (77) 97/70 (79) 94/66 (75) Pulse Ox 93 93 94 O2 Delivery Room Air Room Air Room Air 02/24/23 02/24/23 02/24/23 02/24/23 07:41 07:44 08:00 08:00 Temp 36.6 Pulse 102 Resp 24 B/P (MAP) 111/65 (80) Pulse Ox 96 96 96 O2 Delivery Room Air Room Air Room Air O2 Flow Rate 0.00 0.00 02/24/23 02/24/23 08:54 09:00 Temp 36.6 Pulse 98 Resp 62 B/P (MAP) 102/63 (76) Pulse Ox 95 O2 Delivery Room Air 02/23/23 23:59 Intake Total 2790 ml Balance 2790 ml Weight (Pounds): 116 Weight (Ounces): 0.0 Weight (Calculated Kilograms): 52.372590 Constitutional: AAO x 3, well-developed, well-nourished Respiratory: No accessory muscle use; chest expansion is symmetric, chest is bilaterally symmetric, other (fair to good, bilateral air entry) Cardiovascular: regular rate-rhythm, S1 and S2, systolic murmur (soft ANA at card base) Gastrointestional: No tender; soft; No guarding, No rebound; audible bowel sounds Extremities: No clubbing, No cyanosis, No significant edema Neurologic/Psychiatric: oriented x 3, other (moves all limbs) Skin: normal color, warm/dry; No rash on exposed areas, No ulcerations on ex posed areas Results/Procedures: Labs Laboratory Tests 02/24/23 04:07: White Blood Count 10.1, Red Blood Count 2.95L, Hemoglobin 9.2L, Hematocrit 29L, Mean Corpuscular Volume 97, Mean Corpuscular Hemoglobin 31, Mean Corpuscular Hemoglobin Concent 32, Red Cell Distribution Width 14.7H, Platelet Count 315, Mean Platelet Volume 10.2, Immature Granulocyte % (Auto) 0, Neutrophils (%) (Au to) 58, Lymphocytes (%) (Auto) 25, Monocytes (%) (Auto) 11, Eosinophils (%) (Auto) 5, Basophils (%) (Auto) 1, Neutrophils # (Auto) 5.8, Lymphocytes # (Auto) 2.5, Monocytes # (Auto) 1.1H, Eosinophils # (Auto) 0.5H, Basophils # (Auto) 0.1, Immature Granulocyte # (Auto) 0.0, Sodium Level 140, Potassium Level 4.0, Chloride Level 115H, Carbon Dioxide Level 19L, Anion Gap 6, Blood Urea Nitrogen 20H, Creatinine 1.39H, Estimat Glomerular Filtration Rate 42, BUN/Creatinine Ratio 14, Glucose Level 84, Calcium Level 8.9, Corrected Calcium 9.8, Phosphorus Level 2.2L, Magnesium Level 1.9, Total Bilirubin 0.2, Aspartate Amino Transf (AST/SGOT) 12, Alanine Aminotransferase (ALT/SGPT) 10, Alkaline Phosphatase 55, Total Protein 5.8L, Albumin 2.9L Microbiology 02/22/23 Urine Culture - Final, Complete Probable Coag Negative Staph See Comments 02/17/23 MRSA Screen - Final, Complete MRSA not isolated Laboratory Tests 02/23/23 04:44 02/24/23 04:07 A/P: Assessment: Fall, preceded by dizziness. Hypotension at admission. Improved but not fully resolved with hydration - Echo on 02-21-23 (Dr Almaraz): LVEF 55-60%, septal bulge with FELIX but w/o LVOT acceleration, normal systolic and diastolic function, no wall motion abnormality, device lead in right ventricle, trivial TR, no pericard eff, PASP 35-30 mmHg - Limited echo on 02-23-23: LVEF approx 60%, no RWMA seen, minimal amount of pericardial fluid (not significantly different from the study of 02-21-23) w/o evidence of hemodynamic compromise S/p perm pacemaker for advanced heart block in 2015 - pacemaker interrogation by Dr Almaraz on 02-21-23: normal function, no significant arrhythmia - repeat interrotation on after clinical evidence of diaphragmatic stimulation by the pacemaker: corrected by changing ventricular lead pulse width from 0.4 to 0.9 and voltage from 2 to 1.5. Lead impedances are normal and rhythm is sinus tach ( a sense, v pace) Renal insuff, probably partly acute, improved with hydration Hyperlipidemia - treated as out pt with atorvastatin Abnormal MRI of the C-spine - Discussed with Dr Blanco who is managing and who had discussed this with Orthopedics who have advised outpt f/u Plan: * Complex management * BP remains low at times, although she reports that her BP is chronically low at baseline, but will sometimes be high (labile HTN) * Ambulate in halls today * Orthostatic BP's today * Continue to monitor lab * Replace electrolytes as indicated * Thigh high compression socks on in the morning and off at hs NIRALI TORRES MD [facility] Feb 24, 2023 09:55
[2023-02-24] MEDS: NOREPINEPHRINE 8 MG/250 ML 250 ML IV SCH (10:15)
--- NOTE | 2023-02-24 11:43 | Physical Therapy Progress Note ---
Therapy Progress Note Patient was evaluated by physical therapy last week and was deemed at PLOF safely. RN reports patient remains independent PL. No skilled PT indicated. JENNIFER RHODES PT Feb 24, 2023 11:43
[2023-02-24] MEDS: HYDROcodone/APAP 7.5 MG/325 MG (LORTAB, LORCET PLUS) TABLET PO PRN (17:38)
[2023-02-24] MEDS: ESTRADIOL 1 MG TAB (ESTRACE) PO SCH (17:38)
[2023-02-24] MEDS ORDERED: ENOXAPARIN 40 MG/0.4 ML (LOVENOX) SYR SQ SCH ×2 (20:15→21:15)
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
[2023-02-25 03:48] LABS: BASOPHILS # (AUTO) 0.1 10^3/uL (0.0-0.1); BASOPHILS % (AUTO) 1 % (0-10); EOSINOPHILS # (AUTO) 0.7 10^3/uL (0.0-0.3); EOSINOPHILS % (AUTO) 7 % (0-10); HEMATOCRIT 28 % (35-52); LYMPHOCYTES # (AUTO) 2.9 10^3/uL (1.0-4.0); LYMPHOCYTES % (AUTO) 33 % (12-44); MEAN CORPUSCULAR HEMOGLOBIN 31 pg (25-34); MEAN CORPUSCULAR HGB CONC 32 g/dL (32-36); MEAN CORPUSCULAR VOLUME 98 fL (80-99); MEAN PLATELET VOLUME 10.3 fL (9.0-12.2); MONOCYTES # (AUTO) 0.9 10^3/uL (0.0-1.0); MONOCYTES % (AUTO) 10 % (0-12); NEUTROPHILS # (AUTO) 4.3 10^3/uL (1.8-7.8); NEUTROPHILS % (AUTO) 49 % (42-75); PLATELET COUNT 349 10^3/uL (130-400); WHITE BLOOD COUNT 8.8 10^3/uL (4.3-11.0)
[2023-02-25 03:58] LABS: ALBUMIN 2.9 GM/DL (3.2-4.5); POTASSIUM 3.9 MMOL/L (3.6-5.0)
[2023-02-25 03:59] LABS: CALCIUM 8.9 MG/DL (8.5-10.1)
[2023-02-25 04:00] LABS: TOTAL PROTEIN 5.8 GM/DL (6.4-8.2)
[2023-02-25 04:02] LABS: BILIRUBIN,TOTAL 0.1 MG/DL (0.1-1.0)
[2023-02-25] MEDS: POTASSIUM CL 10MEQ/50ML IVPB 50 ML IV SCH (04:03)
[2023-02-25] MEDS: KCL 20 MEQ TAB (K-DUR) PO SCH (04:03)
[2023-02-25 04:04] LABS: CREATININE SERUM 1.25 MG/DL (0.60-1.30); PHOSPHORUS 2.3 MG/DL (2.3-4.7)
[2023-02-25] MEDS ORDERED: KCL 20 MEQ TAB (K-DUR) PO ONE (04:15)
[2023-02-25] MEDS: MAGNESIUM 1 GM/100 ML IVPB 100 ML IV SCH (04:55)
[2023-02-25] MEDS: LEVOTHYROXINE 25 MCG (LEVOTHROID) TAB PO SCH (05:34)
[2023-02-25] MEDS: THIAMINE 100 MG (VITAMIN B-1) TAB PO SCH (05:34)
[2023-02-25] MEDS: CATHETER FLUSH 10 ML SYR IVP SCH (05:35)
[2023-02-25] MEDS: NS IV 1000 ML 1,000 ML IV SCH (05:36)
--- NOTE | 2023-02-25 09:55 | D/C HH Face to Face Order ---
D/C Face to Face Orders Instructions for Patient Via [facility] [employer] [facility], Patient Instructions/FollowUp: See instructions Physician to follow Patient: Nigel Discharge Diet for Home: No Restrictions Patient Data-Allergies,Ht & Wt Patient Allergies: Coded Allergies: penicillin G (Verified Allergy, Unknown, 12/18/21) Height (Feet): 5 Height (Inches): 9.00 Weight (Pounds): 116 Weight (Ounces): 0.0 Home Health Need/Face to Face Date of Face to Face: Feb 25, 2023 Clinical Findings: Generalized weakness and fatigue, Muscle weakness, Unsteady gait I have seen Pt [id number]: Yes Discharged To: Home Diagnosis/Conditions: Orthostasis Hypertension Chronic kidney disease Cervical stenosis Problems/Diagnosis/Condition: (1) Stage 3a chronic kidney disease (CKD) (2) Hypotension (3) Cervical stenosis of spine Patient is Homebound due to: Angelina fall risk due to instabilty, Muscle weakness Homebound Status Due to the above stated illness, injury or surgical procedure (medical condition or diagnosis) and associated clinical findings, the patient is homebound because of his/her inability to leave home except with aid of a supportive device and/or person AND leaving the home requires a considerable and taxing effort or is medically contraindicated. Pt req the following assistanc: Aid of another person Home Health Nursing Orders Home Health Services Order: Nursing Services, Physical Therapy-Evaluate & Treat Home Health Infusion Therapy Line Start Date: Feb 22, 2023 Therapy Orders Therapy Orders: Physical Therapy Therapy Specific Orders: Eval assistive deivces, Teach enviro modifications/safety, Gait training, Increase strength/endurance Certify Stmt I certify that this patient is under my care and that I, a nurse practitioner or a physician; a assistant brand manager working with me, had a face to face encounter that - meets the physician face to face encounter requirements with this patient as dated. ASPEN JEAN MD Feb 25, 2023 09:55
[2023-02-25 10:25] VITALS: BP 90/56
[2023-02-25] MEDS: buPROPion SR 150 MG (WELLBUTRIN SR) TAB PO SCH (10:25)
[2023-02-25] MEDS: HYDROcodone/APAP 7.5 MG/325 MG (LORTAB, LORCET PLUS) TABLET PO SCH (10:25)
[2023-02-25] MEDS: PREGABALIN 50 MG (LYRICA) CAP PO SCH (10:25)
[2023-02-25] MEDS: NOREPINEPHRINE 8 MG/250 ML 250 ML IV SCH (10:25)
[2023-02-25] MEDS: CYCLOBENZAPRINE 10 MG (FLEXERIL) TAB PO SCH (10:25)
--- NOTE | 2023-02-25 13:34 | Tele-ICU Progress Note ---
Subjective Date Seen by a Provider: Feb 25, 2023 Time Seen by a Provider: 09:31 Subjective/Events-last exam (Tele-ICU Physician , Progress Note ) Service provided via interactive audio and video telecommunications E-CARE system to a patient admitted to ICU bed in [facility]. Patient is seen today due to persistent need of ICU care Available chart/ vitals / labs / Images reviewed Video assessment done using teleICU camera, rest of exam as per RN Discussed with RN Events overnight : Afebrile hemodynamically stable Respiratory - ra I/O = even Drips: Pressors- LEVO OFF Hospital course: (02/17) 67yF admit with hypotension, JOSEFA s/p fall, CTH neg. line placed levo started A/P S/p fall and brief LOC -CT head and facial bones and MRI did not show any acute process or Fx - ? related to combimation of different class medications - ? no clear sigh of infection - follow clinical progress Shock - etiology not clear - related to combination of different class medications ? - OFF LEVO but BP still low ( off her home meds for BP - monitor , cards follow Had diaphragmatic stimulation from the ventricular lead and lead pulse adjusted by Dr Berry JOSEFA/CKD -improving , close to baseline Hypoxia- resolved , on RA Encephalopathy - meds related ? RESOLVED -CTH and MRI on admission WNL chronic pain syndrome. cervical disk ds - MRI done - on multiple pain meds at home s/p fall - ECHO 12/2021 EF 60 % dst dsf , RVSP 35 mmHg Lines : peripg , r femoral line 02/17 , (Central Line Necessity Reviewed) Rosales: removed , void OG: Nutrition: po Analgesia: Anxiety/ delirium VTE Prophylaxis: hep sq Stress Ulcer Prophylaxis: na Plans in collaboration with bedside consultants and IM MDs. Discussed with RN to reach out if any questions or concerns Case and care daily discussed on multidisciplinary rounds ( RN, PharmD, Special Effects Makeup Artist , Respiratory Therapy, bulbs farmworker ) A total of 5 minutes of critical care time was devoted to this patient today, r equired to treat and/or prevent further deterioration of critical care condition ( as above ) . I am remotely monitoring this patient from another state. I am unable to do the bedside exam, and history/physical and pertinent information is taken from other notes in the computer and bedside staff. Sepsis Event Evaluation Height, Weight, BMI Height: 5'9.00" Weight: 116lbs. 0.0oz. 52.531160yd; 25.27 BMI Method: Focused Exam Lactate Level 02/23/23 04:44: Lactic Acid Level 0.67 Exam Exam Patient acknowledged, consented, and participated in this virtual visit which was conducted using real time audio/video Vital Signs Date Time Temp Pulse Resp B/P (MAP) Pulse Ox O2 Delivery O2 Flow Rate FiO2 02/25/23 12:39 98 02/25/23 12:00 96 20 96/74 (81) 98 Room Air 02/25/23 12:00 95 Room Air 02/25/23 11:18 36.7 02/25/23 11:00 97 13 117/95 (102) 96 Room Air 02/25/23 10:55 36.8 02/25/23 10:25 36.8 02/25/23 10:25 116 90/56 02/25/23 10:00 90 25 108/76 (87) 95 Room Air 02/25/23 09:00 116 22 90/56 (67) 95 Room Air 02/25/23 08:00 93 35 73/53 (60) 96 Room Air 02/25/23 08:00 95 Room Air 02/25/23 07:41 36.8 02/25/23 07:35 94 02/25/23 07:00 91 14 106/73 (84) 95 Room Air 02/25/23 06:00 93 25 101/76 (84) 96 Room Air 02/25/23 05:00 92 15 127/73 (91) 96 Room Air 02/25/23 04:02 97 Room Air 02/25/23 04:00 96 23 106/70 (82) 95 Room Air 02/25/23 03:12 92 22 94/60 (68) 94 Room Air 02/25/23 02:00 91 32 105/68 (83) 94 Room Air 02/25/23 01:30 92 32 91/65 (74) 93 Room Air 02/25/23 01:00 90 02/25/23 00:00 93 22 98/73 (81) 94 Room Air 02/24/23 23:59 96 Room Air 02/24/23 23:00 90 17 100/69 (79) 94 Room Air 02/24/23 22:30 91 111/67 (83) 97 Room Air 02/24/23 22:00 87 96 Room Air 02/24/23 21:00 90 11 100/63 (80) 94 Room Air 02/24/23 20:00 95 Room Air 02/24/23 20:00 36.5 02/24/23 20:00 94 35 108/78 (80) 96 Room Air 02/24/23 19:00 93 02/24/23 19:00 93 16 110/70 (79) 97 Room Air 02/24/23 18:10 36.6 02/24/23 18:00 96 18 99/87 (91) 93 Room Air 02/24/23 17:38 36.6 02/24/23 17:00 96 18 105/69 (81) 96 Room Air 02/24/23 16:00 94 Room Air 02/24/23 16:00 98 29 101/70 (80) 95 Room Air 02/24/23 15:27 36.6 02/24/23 15:00 98 16 101/66 (78) 94 Room Air 02/24/23 14:00 102 18 104/68 (80) 94 Room Air I & O 02/25/23 07:00 Intake Total 5550 ml Balance 5550 ml Height & Weight Height: 5'9.00" Weight: 116lbs. 0.0oz. 52.459556wf; 25.27 BMI Method: General Appearance: No Apparent Distress, WD/WN HEENT: PERRL/EOMI, Other (c/o neck pain readiates to head, 8/10) Respiratory: Lungs Clear, No Respiratory Distress Cardiovascular: Regular Rate, Rhythm, No Murmur Capillary Refill: Less Than 3 Seconds Gastrointestinal: normal bowel sounds, non tender, soft, no organomegaly Extremity: Normal Inspection, No Pedal Edema Neurologic/Psychiatric: Alert, No Motor/Sensory Deficits Results Lab Laboratory Tests 02/24/23 04:07 02/25/23 03:38 Assessment/Plan Assessment/Plan 1 GUERO CHERRY MD Feb 25, 2023 13:34
--- NOTE | 2023-02-25 15:41 | Progress Note - Cardiology ---
Cardiology SOAP Progress Note Subjective: Pt's best friend and neighbor (lives downstairs from her) who was present at the time of the index event was present at this exam. She stated it was a syncopal episode that occurred while patient was standing stationary and upright. It was preceded by a feeling of passing out that she reported to her friend and then fell down and regained consciousness within a few seconds No cp or palp or syncope (other than the one described above) No n/v/d No weakness or focal weakness No swelling Wishes to go home Objective: I&O/Vital Signs 02/25/23 02/25/23 02/25/23 02/25/23 04:00 04:02 05:00 06:00 Pulse 96 92 93 Resp 23 15 25 B/P (MAP) 106/70 (82) 127/73 (91) 101/76 (84) Pulse Ox 95 97 96 96 O2 Delivery Room Air Room Air Room Air Room Air 02/25/23 02/25/23 02/25/23 02/25/23 07:00 07:35 07:41 08:00 Temp 36.8 Pulse 91 94 Resp 14 B/P (MAP) 106/73 (84) Pulse Ox 95 95 O2 Delivery Room Air Room Air 02/25/23 02/25/23 02/25/23 02/25/23 08:00 09:00 10:00 10:25 Pulse 93 116 90 116 Resp 35 22 25 B/P (MAP) 73/53 (60) 90/56 (67) 108/76 (87) 90/56 Pulse Ox 96 95 95 O2 Delivery Room Air Room Air Room Air 02/25/23 02/25/23 02/25/23 02/25/23 10:25 10:55 11:00 11:18 Temp 36.8 36.8 36.7 Pulse 97 Resp 13 B/P (MAP) 117/95 (102) Pulse Ox 96 O2 Delivery Room Air 02/25/23 02/25/23 02/25/23 02/25/23 12:00 12:00 12:39 13:00 Pulse 96 98 92 Resp 20 41 B/P (MAP) 96/74 (81) 100/75 (83) Pulse Ox 95 98 97 O2 Delivery Room Air Room Air Room Air 02/25/23 00:00 Intake Total 3450 ml Balance 3450 ml Weight (Pounds): 116 Weight (Ounces): 0.0 Weight (Calculated Kilograms): 52.040154 Constitutional: AAO x 3, well-developed, well-nourished Respiratory: No accessory muscle use; chest expansion is symmetric, chest is bilaterally symmetric, other (fair to good, bilateral air entry) Cardiovascular: regular rate-rhythm, S1 and S2, systolic murmur (soft ANA at card base) Gastrointestional: No tender; soft; No guarding, No rebound; audible bowel sounds Extremities: No clubbing, No cyanosis, No significant edema Neurologic/Psychiatric: oriented x 3, other (moves all limbs) Skin: normal color, warm/dry; No rash on exposed areas, No ulcerations on exposed areas Results/Procedures: Labs Laboratory Tests 02/25/23 03:38: White Blood Count 8.8, Red Blood Count 2.88L, Hemoglobin 9.0L, Hematocrit 28L, Mean Corpuscular Volume 98, Mean Corpuscular Hemoglobin 31, Mean Corpuscular Hemoglobin Concent 32, Red Cell Distribution Width 15.0H, Platelet Count 349, Mean Platelet Volume 10.3, Immature Granulocyte % (Auto) 1, Neutrophils (%) (Auto) 49, Lymphocytes (%) (Auto) 33, Monocytes (%) (Auto) 10, Eosinophils (%) (Auto) 7, Basophils (%) (Auto) 1, Neutrophils # (Auto) 4.3, Lymphocytes # (Auto) 2.9, Monocytes # (Auto) 0.9, Eosinophils # (Auto) 0.7H, Basophils # (Auto) 0.1, Immature Granulocyte # (Auto) 0.0, Sodium Level 139, Potassium Level 3.9, Chloride Level 114H, Carbon Dioxide Level 17L, Anion Gap 8, Blood Urea Nitrogen 21H, Creatinine 1.25, Estimat Glomerular Filtration Rate 48, BUN/Creatinine Ratio 17, Glucose Level 84, Calcium Level 8.9, Corrected Calcium 9.8, Phosphorus Level 2.3, Magnesium Level 2.0, Total Bilirubin 0.1, Aspartate Amino Transf (AST/SGOT) 13, Alanine Aminotransferase (ALT/SGPT) 11, Alkaline Phosphatase 58, Total Protein 5.8L, Albumin 2.9L Microbiology 02/22/23 Urine Culture - Final, Complete Probable Coag Negative Staph See Comments 02/17/23 MRSA Screen - Final, Complete MRSA not isolated Laboratory Tests 02/24/23 04:07 02/25/23 03:38 A/P: Assessment: Syncope, likely neurocardiogenic, at time of admission (no recurrence) Hypotension at admission (worse than the known chronically low bp) corrected with hydration - Echo on 02-21-23 (Dr Almaraz): LVEF 55-60%, septal bulge with FELIX but w/o LVOT acceleration, normal systolic and diastolic function, no wall motion abnormality, device lead in right ventricle, trivial TR, no pericard eff, PASP 35-30 mmHg - Limited echo on 02-23-23: LVEF approx 60%, no RWMA seen, minimal amount of pericardial fluid (not significantly different from the study of 02-21-23) w/o evidence of hemodynamic compromise S/p perm pacemaker for advanced heart block in 2014 - pacemaker interrogation by Dr Almaraz on 02-21-23: normal function, no significant arrhythmia - repeat interrotation on after clinical evidence of diaphragmatic stimulation by the pacemaker: corrected by changing ventricular lead pulse width from 0.4 to 0.9 and voltage from 2 to 1.5. Lead impedances are normal and rhythm is sinus tach ( a sense, v pace) Renal insuff, probably partly acute, improved with hydration Anemia - managed by the Hospitalist digna Hyperlipidemia - treated as out pt with atorvastatin Abnormal MRI of the C-spine - Discussed with Dr Blanco who is managing and who had discussed this with Orthopedics who have advised outpt f/u Plan: * Complex management * I had a long and detailed discussion with the patient and her friend who was a witness to the event that led to the hospitalization (see above) * We discussed and advised measures to avoid postural/neurocardiogenic syncope: good hydration, avoidance of being stationary when upright, exercising calf muscles when upright, use of thigh-high compression stocking during awake hours * We have advised vent lead replacement (due intermittent diaphragmatic pacing that was corrected with output adjustment while still maintaining a capture safety margin of 2:1 during this hospitalization). We advised her to make an apptt with Dr Valentin at for this. We have already spoken with Dr Luther pacheco about this and he has suggested lead replacement on an outpt basis * Close Med and Card f/u advised for now NIRALI TORRES MD FACP FACC CCDS Feb 25, 2023 15:41
--- NOTE | 2023-02-25 15:55 | Discharge Summary ---
Discharge Summary Hospital Course Problems/Dx: (1) Hypovolemic shock Status: Acute (2) Hypotension Status: Acute (3) Acute kidney injury superimposed on chronic kidney disease Status: Acute (4) Cervical stenosis of spine Status: Acute (5) Pacemaker lead malfunction Status: Acute Qualifiers: Qualified Codes: T82.110A - Breakdown (mechanical) of cardiac electrode, initial encounter Hospital Course Date of Admission: Feb 17, 2023 at 22:44 Admission Diagnosis : Syncope due to orthostatic hypotension, hypovolemic shock Family Physician/Provider: Ronny Manning DO Date of Discharge: 02/25/23 Discharge Diagnosis: Syncope due to orthostatic hypotension, hypovolemic shock, JOSEFA on CKD Hospital Course: Ximena Hernandez is a 67 year old female who presented after a syncopal episode and was admitted with hypovolemic shock. She also had an JOSEFA on CKD. She was treated with IV fluids and pressors. Her antihypertensives were discontinued. Her blood pressure remained low-normal after fluid replacement, off her home BP meds. Cardiology was consulted and assisted with her care. Her pacemaker was found to be causing diaphragmatic stimulation and her pacemaker lead was adjusted. She was also found to have severe cervical spinal stenosis. She was scheduled for an outpatient follow up with Dr. Alfonso on March 03. She should follow up with Dr. Manning in about a week. She should follow up with her technical cable jointer, Dr. Bush, as scheduled. She was discharged home in stable condition. Labs and Pending Lab Test: Laboratory Tests 02/25/23 03:38: White Blood Count 8.8, Red Blood Count 2.88L, Hemoglobin 9.0L, Hematocrit 28L, Mean Corpuscular Volume 98, Mean Corpuscular Hemoglobin 31, Mean Corpuscular Hemoglobin Concent 32, Red Cell Distribution Width 15.0H, Platelet Count 349, Mean Platelet Volume 10.3, Immature Granulocyte % (Auto) 1, Neutrophils (%) ( Auto) 49, Lymphocytes (%) (Auto) 33, Monocytes (%) (Auto) 10, Eosinophils (%) (Auto) 7, Basophils (%) (Auto) 1, Neutrophils # (Auto) 4.3, Lymphocytes # (Auto) 2.9, Monocytes # (Auto) 0.9, Eosinophils # (Auto) 0.7H, Basophils # (Auto) 0.1, Immature Granulocyte # (Auto) 0.0, Sodium Level 139, Potassium Level 3.9, Chloride Level 114H, Carbon Dioxide Level 17L, Anion Gap 8, Blood Urea Nitrogen 21H, Creatinine 1.25, Estimat Glomerular Filtration Rate 48, BUN/Creatinine Ratio 17, Glucose Level 84, Calcium Level 8.9, Corrected Calcium 9.8, Phosphorus Level 2.3, Magnesium Level 2.0, Total Bilirubin 0.1, Aspartate Amino Transf (AST/SGOT) 13, Alanine Aminotransferase (ALT/SGPT) 11, Alkaline Phosphatase 58, Total Protein 5.8L, Albumin 2.9L Microbiology 02/22/23 Urine Culture - Final, Complete Probable Coag Negative Staph See Comments 02/17/23 MRSA Screen - Final, Complete MRSA not isolated Home Meds Active Reported Vitamin C (Ascorbic Acid) 1,000 Mg Tablet 1,000 Mg PO 1700 Aspirin EC (Aspirin) 325 Mg Tablet.dr 325 Mg PO DAILY Multivitamin 1 Each Tablet 1 Each PO DAILY Bupropion HCl Sr (Bupropion HCl) 150 Mg Tablet.er 150 Mg PO 0800,1700 Estradiol Tablet (Estradiol) 0.5 Mg Tablet 0.5 Mg PO 1700 Cyclobenzaprine HCl 10 Mg Tablet 10 Mg PO BID Allopurinol 100 Mg Tablet 100 Mg PO HS Atorvastatin Calcium 40 Mg Tablet 40 Mg PO HS Levothyroxine Sodium 25 Mcg Tablet 25 Mcg PO DAILY Hydrocodone-Acetamin 7.5-325 (Hydrocodone/Acetaminophen) 7.5 Mg-325 Mg Tablet 1 Each PO DAILY PRN Hydrocodone-Acetamin 7.5-325 (Hydrocodone/Acetaminophen) 7.5 Mg-325 Mg Tablet 2 Each PO HS Hydrocodone-Acetamin 7.5-325 (Hydrocodone/Acetaminophen) 7.5 Mg-325 Mg Tablet 1 Ea PO DAILY Pregabalin 50 Mg Capsule 50 Mg PO BID Assessment/Pt Instructions See instructions Discharge Planning: >30 minutes discharge planning Discharge Instructions Discharge Diet: Low Sodium Diet Activity as Tolerated: Yes Consultations Cardiology Discharge Physical Examination Vital Signs Vital Signs Date Time Temp Pulse Resp B/P (MAP) Pulse Ox O2 Delivery O2 Flow Rate FiO2 02/25/23 13:00 92 41 100/75 (83) 97 Room Air 02/25/23 11:18 36.7 02/24/23 08:00 0.00 General Appearance: No Apparent Distress, WD/WN Respiratory: Lungs Clear, No Respiratory Distress Cardiovascular: Regular Rate, Rhythm, No Murmur Gastrointestinal: Normal Bowel Sounds, Soft Extremity: Normal Inspection, No Pedal Edema Skin: Normal Color, Warm/Dry Neurologic/Psychiatric: Alert, Normal Mood/Affect Allergies: Coded Allergies: penicillin G (Verified Allergy, Unknown, 12/18/21) Copy Copies To 1: RONNY MANNING DO Discharge Summary Date of Admission Feb 17, 2023 at 22:44 Date of Discharge Feb 25, 2023 at 14:39 Discharge Date: Feb 25, 2023 Discharge Time: 14:39 Admission Diagnosis Hypotension Consults/Procedures Consulations Cardiology Procedures Pacemaker lead adjustment Discharge Diagnosis Hypotension JOSEFA on CKD Cervical spine stenosis Generalized weakness CHB s/p pacemaker Pacemaker lead malfunction Hypothyroidism (1) Hypovolemic shock Status: Acute (2) Hypotension Status: Acute (3) Acute kidney injury superimposed on chronic kidney disease Status: Acute (4) Cervical stenosis of spine Status: Acute (5) Pacemaker lead malfunction Status: Acute Qualifiers: Qualified Codes: T82.110A - Breakdown (mechanical) of cardiac electrode, initial encounter ASPEN JEAN MD Feb 25, 2023 15:55
== END 2023-02-25 14:39 | disposition home or self-care (01) | DRG 312 ==
LOC: EDUNIT# 20:15 → ER 20:19 → ICU 22:44
PROVIDERS: ADMIT Internal Medicine; ATTEND Internal Medicine
DX: I95.1 Orthostatic hypotension (principal); R57.1 Hypovolemic shock; N17.9 Acute kidney failure, unspecified; T82.110A Breakdown (mechanical) of cardiac electrode, initial encounter; I44.2 Atrioventricular block, complete; I13.0 Hypertensive heart and chronic kidney disease with heart failure and stage 1 through stage 4 chronic kidney disease, or unspecified chronic kidney disease; G93.40 Encephalopathy, unspecified; N18.9 Chronic kidney disease, unspecified; M48.02 Spinal stenosis, cervical region; I50.9 Heart failure, unspecified; I25.10 Atherosclerotic heart disease of native coronary artery without angina pectoris; E78.00 Pure hypercholesterolemia, unspecified; Z79.82 Long term (current) use of aspirin; Z79.899 Other long term (current) drug therapy; M19.90 Unspecified osteoarthritis, unspecified site; F41.9 Anxiety disorder, unspecified; F17.210 Nicotine dependence, cigarettes, uncomplicated; E03.9 Hypothyroidism, unspecified; G89.4 Chronic pain syndrome
CPT/HCPCS: 36415; 36556; 51702; 70450; 70486; 70551; 71045; 72125; 72141; 74018; 80053; 80306; 80320; 81000; 82533; 83605; 83690; 83735; 84100; 84443; 84484; 85025; 85610; 85730; 87081; 87088; 93005; 93306; 93308; 96361; 96365